=== PATIENT | male | born 1960 | race African-American/Black ===

== ENCOUNTER 2020-08-17 16:43 | Emergency (ER) | payer OTHER ==
[~2020-08-17] VITALS: Ht 185.4 cm; Wt 117.9 kg
[2020-08-17 16:46] VITALS: BP 187/96
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
--- NOTE | 2020-08-17 17:38 | Diagnostic Imaging Report ---
EXAM: CT Head Without Intravenous Contrast CLINICAL HISTORY: TRAUMA TECHNIQUE: Axial computed tomography images of the head/brain without intravenous contrast. CTDI is 53.4 mGy and DLP is 1179.1 mGy-cm. One or more of the following dose reduction techniques were used: automated exposure control, adjustment of the mA and/or kV according to patient size, use of iterative reconstruction technique. COMPARISON: No relevant prior studies available. FINDINGS: Brain: No acute intracranial hemorrhage, large hypodensity, or significant mass effect. Nonspecific areas of hypoattenuation in the periventricular white matter likely represent the sequela of chronic small vessel ischemic disease. Ventricles: No significant abnormality. Bones/joints: No acute abnormality. Soft tissues: No significant abnormality. Sinuses: No significant abnormality. Mastoid air cells: No significant abnormality. IMPRESSION: No acute intracranial hemorrhage or calvarial fracture.
--- NOTE | 2020-08-17 18:09 | Diagnostic Imaging Report ---
EXAM: XR Left Hip With Pelvis When Performed, 2 or 3 Views CLINICAL HISTORY: TRAUMA TECHNIQUE: Two or three views of the left hip with pelvis when performed. COMPARISON: No relevant prior studies available. FINDINGS: Bones/joints: No acute fracture or dislocation. Abnormal contour of bilateral femoral head neck junctions. Severe left hip osteoarthritis. Soft tissues: No significant abnormality. IMPRESSION: No acute fracture or dislocation. Abnormal contour of bilateral femoral head neck junctions can be seen in the setting of cam type femoral acetabular impingement.
--- NOTE | 2020-08-17 18:10 | Diagnostic Imaging Report ---
EXAM: XR Right Knee, 3 Views CLINICAL HISTORY: TRAUMA TECHNIQUE: Three views of the right knee. COMPARISON: No relevant prior studies available. FINDINGS: Bones/joints: No acute fracture or malalignment. Quadriceps enthesophyte. Soft tissues: No significant abnormality. IMPRESSION: No acute fracture or malalignment.
[2020-08-17 18:40] VITALS: BP 159/94
[2020-08-17] MEDS ORDERED: IBUPROFEN600 M1 ORAL (19:02)
[2020-08-17] MEDS ORDERED: LORazepam 0.5mg tab ORAL ONE (19:30)
[2020-08-17] MEDS ORDERED: Haloperidol Decanoate (Long Acting) 50mg Inj IM ONE (19:45)
[2020-08-17 20:20] LABS: APPEARANCE,URINE CLEAR; BILIRUBIN, URINE NEGATIVE (NEGATIVE); COLOR,URINE PALE YELLOW; GLUCOSE, URINE (UA) NEGATIVE (NEGATIVE); KETONES,URINE NEGATIVE (NEGATIVE); LEUKOCYTE ESTERASE ,URINE NEGATIVE (NEGATIVE); NITRITE,URINE NEGATIVE (NEGATIVE); PH,URINE 5 (4.5-8.0); PROTEIN,URINE NEGATIVE (NEGATIVE); UROBILINOGEN,URINE NORMAL MG/DL (0.0-1.0)
[2020-08-17 21:02] VITALS: BP 153/86
[2020-08-17 21:45] LABS: BASOPHILS % (AUTO) 1.9 % (0.0-2.0); EOSINOPHILS % (AUTO) 1.1 % (0.0-3.0); HEMATOCRIT 37.4 % (42.0-52.0); HEMOGLOBIN 13.7 G/DL (14.2-18.0); LYMPHOCYTES % (AUTO) 33.3 % (20.0-45.0); MEAN CORPUSCULAR VOLUME 85 FL (80-99); MONOCYTES % (AUTO) 10.7 % (1.0-10.0); NEUTROPHILS % (AUTO) 52.9 % (45.0-75.0); PLATELET COUNT 150 K/UL (150-450); RED BLOOD COUNT 4.39 M/UL (4.70-6.10); RED CELL DISTRIBUTION WIDTH 14.2 % (11.6-14.8); WHITE BLOOD COUNT 5.8 K/UL (4.8-10.8)
[2020-08-17 21:58] LABS: ANION GAP 7 mmol/L (5-15); BLOOD UREA NITROGEN 15 mg/dL (7-18); CALCIUM 8.8 MG/DL (8.5-10.1); CARBON DIOXIDE 27 MMOL/L (21-32); CHLORIDE 104 MMOL/L (98-107); POTASSIUM 4.3 MMOL/L (3.5-5.1); SODIUM 138 MMOL/L (136-145)
[2020-08-17 22:03] LABS: ALANINE AMINOTRANSFERASE 39 U/L (12-78); ALBUMIN 3.5 G/DL (3.4-5.0); ALBUMIN/GLOBULIN RATIO 0.9 (1.0-2.7); ALKALINE PHOSPHATASE 77 U/L (46-116); ASPARTATE AMINO TRANSFERASE 36 U/L (15-37); BILIRUBIN,TOTAL 0.5 MG/DL (0.2-1.0)
[2020-08-17 22:54] VITALS: BP 153/86
== END 2020-08-17 22:55 | disposition short-term general hospital (02) ==
LOC: EDBD 16:43 → EMR 17:00
DX: S09.90XA Unspecified injury of head, initial encounter (principal); S80.01XA Contusion of right knee, initial encounter; S70.02XA Contusion of left hip, initial encounter; R41.82 Altered mental status, unspecified; W01.198A Fall on same level from slipping, tripping and stumbling with subsequent striking against other object, initial encounter; Y93.9 Activity, unspecified; Y92.129 Unspecified place in nursing home as the place of occurrence of the external cause
CPT/HCPCS: 36415; 70450; 73502; 73562; 80053; 81003; 83690; 85025; 96372; J1631; U0002; Z7502; 99285

== ENCOUNTER 2020-10-24 18:39 | Inpatient (IN) | payer OTHER ==
[~2020-10-24] VITALS: Ht 185.4 cm; Wt 126.6 kg
[~2020-10-24 18:39] MED LIST: IBUPROFEN600 M1 ORAL
[2020-10-24] MEDS ORDERED: levETIRAcetam 500mg/NS100ml 100 ML IV ONE (18:45)
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
[2020-10-24 19:07] LABS: APPEARANCE,URINE CLEAR; BASOPHILS % (AUTO) 0.8 % (0.0-2.0); BILIRUBIN, URINE NEGATIVE (NEGATIVE); COLOR,URINE PALE YELLOW; EOSINOPHILS % (AUTO) 0.4 % (0.0-3.0); GLUCOSE, URINE (UA) NEGATIVE (NEGATIVE); HEMATOCRIT 42.7 % (42.0-52.0); HEMOGLOBIN 13.8 G/DL (14.2-18.0); KETONES,URINE NEGATIVE (NEGATIVE); LEUKOCYTE ESTERASE ,URINE NEGATIVE (NEGATIVE); LYMPHOCYTES % (AUTO) 12.6 % (20.0-45.0); MEAN CORPUSCULAR VOLUME 93 FL (80-99); NEUTROPHILS % (AUTO) 78.2 % (45.0-75.0); NITRITE,URINE NEGATIVE (NEGATIVE); PH,URINE 8 (4.5-8.0); PLATELET COUNT 148 K/UL (150-450); PROTEIN,URINE NEGATIVE (NEGATIVE); RED BLOOD COUNT 4.61 M/UL (4.70-6.10); RED CELL DISTRIBUTION WIDTH 14.4 % (11.6-14.8); UROBILINOGEN,URINE NORMAL MG/DL (0.0-1.0)
--- NOTE | 2020-10-24 19:12 | NUR ---
Patient presents to the ER from care home reporting that he had 4 seizures today. He does have hx of seizures & epilepsy. pt on keppra 500 and gabapentin. pt states + LOC, unsure if he hit his head. care home unable to state time between seizures. pt A&Ox4 on arrival. pt states hx stroke with R sided weakness. pt placed on continuous cardiac/O2 monitor. IV placed 20g L hand. labs & urine sent.
[2020-10-24 19:19] LABS: ANION GAP 9 mmol/L (5-15); BLOOD UREA NITROGEN 14 mg/dL (7-18); CALCIUM 9.3 MG/DL (8.5-10.1); CARBON DIOXIDE 27 MMOL/L (21-32); CHLORIDE 100 MMOL/L (98-107); SODIUM 135 MMOL/L (136-145)
[2020-10-24 19:21] LABS: ALANINE AMINOTRANSFERASE 32 U/L (12-78); ALBUMIN 3.7 G/DL (3.4-5.0); ALBUMIN/GLOBULIN RATIO 0.7 (1.0-2.7); ALKALINE PHOSPHATASE 88 U/L (46-116); ASPARTATE AMINO TRANSFERASE 28 U/L (15-37); BILIRUBIN,TOTAL 0.2 MG/DL (0.2-1.0); CREATINE KINASE 254 U/L (26-308)
[2020-10-24] MEDS ORDERED: LORazepam Inj 2mg/ml 1ml IV ONE (19:30)
[2020-10-24] MEDS ORDERED: LORazepam Inj 2mg/ml 1ml ONE (19:31)
--- NOTE | 2020-10-24 19:34 | Diagnostic Imaging Report ---
EXAM: CT Head Without Intravenous Contrast CLINICAL HISTORY: SZ TECHNIQUE: Axial computed tomography images of the head/brain without intravenous contrast. CTDI is 53.4 mGy and DLP is 1075.9 mGy-cm. One or more of the following dose reduction techniques were used: automated exposure control, adjustment of the mA and/or kV according to patient size, use of iterative reconstruction technique. COMPARISON: Total 18 2020 FINDINGS: Brain: Interval mildly increased subtle hypodensity in the right basal ganglia region could reflect changes of chronic microvascular ischemia, although early ischemia could potentially have this appearance. Otherwise no acute intracranial abnormality. Remaining parenchymal morphology and attenuation unremarkable. No hemorrhage. Ventricles: Unremarkable. No ventriculomegaly. Bones/joints: Unremarkable. No acute fracture. Soft tissues: Unremarkable. Sinuses: Unremarkable as visualized. No acute sinusitis. Mastoid air cells: Unremarkable as visualized. No mastoid effusion. Other findings: Correlate with presentation and consider additional imaging if felt to alter clinical management. IMPRESSION: 1. Interval mildly increased subtle hypodensity in the right basal ganglia region could reflect changes of chronic microvascular ischemia, although early ischemia could potentially have this appearance. 2. Correlate with presentation and consider additional imaging if felt to alter clinical management. 3. Otherwise no acute intracranial abnormality. 4. Otherwise unremarkable study. <MYCVCSECTION> Communications: 10/24/20 19:36 Call Doctor Regarding Stroke, called Dr. Haney on 10/24 19:36 (-08:00)
[2020-10-24 20:05] VITALS: BP 148/101
[2020-10-24 20:15] VITALS: BP 124/77
[2020-10-24 20:17] VITALS: BP 173/96
--- NOTE | 2020-10-24 20:17 | NUR ---
ED Nurse Note: Spoke to ENRICO Cui of [facility]
[2020-10-24 21:40] VITALS: BP 163/91
[2020-10-24] MEDS ORDERED: NORVASC10 MG ORAL (23:22)
[2020-10-24] MEDS ORDERED: AMLO (23:22)
[2020-10-24] MEDS ORDERED: DOCUSATE SODIU100 M2 ORAL (23:26)
--- NOTE | 2020-10-24 23:30 | NUR ---
TRANSFER TO FLOOR: Patient transferred to [facility] as ordered, per MD. Report given to Natalie. Belongings sent with patient, belongings form signed, filled, and sent with chart
[2020-10-24] MEDS ORDERED: APRESOLINE100 MG ORAL (23:31)
[2020-10-24] MEDS ORDERED: FOLIC ACID1 MG ORAL (23:31)
[2020-10-24] MEDS ORDERED: GABAPENTIN300 MG/61 ORAL (23:31)
[2020-10-24] MEDS ORDERED: METOPROLOL TART50 M1 ORAL (23:31)
[2020-10-24] MEDS ORDERED: MULTI-VITAMIN1 EACH PO (23:46)
[2020-10-24] MEDS ORDERED: HYDROCODON-ACE1 EA13 ORAL (23:46)
[2020-10-24] MEDS ORDERED: RISPERDAL2 MG ORAL (23:46)
[2020-10-24] MEDS ORDERED: SENNA-S 8.6-501 EACH PO (23:46)
[2020-10-24] MEDS ORDERED: LEVETIRACE500 MG/51 PO (23:46)
[2020-10-24] MEDS ORDERED: LORAZEPAM2 MG/1 M1 PO (23:46)
[2020-10-24] MEDS ORDERED: VITAMIN D325 MC1 PO (23:49)
[2020-10-24] MEDS ORDERED: VITAMIN C500 M1 ORAL (23:49)
[2020-10-24] MEDS ORDERED: TRAZODONE HCL150 MG ORAL (23:49)
[2020-10-24] MEDS ORDERED: ZOFRAN4 M1 ORAL (23:49)
[2020-10-25] VITALS (7 sets, daily range): BP systolic 120–172; BP diastolic 56–97
--- NOTE | 2020-10-25 00:25 | NUR ---
NURSE NOTES: Received report from REVA Wylie. Pt is A/O x2-3 but drowsy. No SOB or acute distress noted. No pain noted. Pt does complain of a headache will ask for medication to treat. Pt is continent of bladder but not bowel. Pt uses a urinal which is placed at bedside. Pt is on seizure precaution and side rails are padded for safety. Pt has a LH 20G which is patent and saline locked. No seizure activity seen at this time. Vs signs are stable but elevated and will contact regarding medications. Bed in lowest position and locked with side rails x3. Will get admitting orders from Dr. Munoz.
[2020-10-25] MEDS ORDERED: HydrALAZINE 50mg tab ORAL ONE (01:30)
[2020-10-25] MEDS: LORazepam Inj 2mg/ml 1ml IVP SCH ×3 (06:11→17:27)
--- NOTE | 2020-10-25 06:26 | NUR ---
NURSE HAND-OFF REPORT: Important Events on Shift:New Admit from S/P Seizure Patient Status: Stable no seizure activity Diet: Regular Pending Orders: Pending Results/Labs: Pending MD notification: Latest Vital Signs: Temperature 99.3 , Pulse 86 , B/P 137 /98 , Respiratory Rate 18 , O2 SAT 97 , Room Air, O2 Flow Rate . Vital Sign Comment: EKG Rhythm: Sinus Rhythm Rhythm change?: N MD Notified?: - MD Response: Latest Chris Fall Score: 60 Fall Risk: High Risk Safety Measures: Call light Within Reach, Bed Alarm Zone 2, Side Rails Side Rails x3, Bed position Low and Locked. Fall Precautions: Yellow Socks Patient Fall Education Report given to Albin.
--- NOTE | 2020-10-25 07:52 | NUR ---
Patient seen in bed in low fowlers position, AAox3 with no acute signs of distress. Patient complaining of being unable to sleep due to routine care at night, minimized lighting and provided quiet environment for patient. Patient had no complaints of pain 0/10. Patient has L hand 22G IV that is saline locked, clean, patent and intact. The patient is on room air with oxygen saturation within normal limits. The patients bed is in lowest position, locked, side rails x2, call light within reach and bed alarm in zone 1.
[2020-10-25] MEDS: Vitamin D 1000 units Tab ORAL SCH (08:27)
[2020-10-25] MEDS: Docusate 100mg cap ORAL SCH (08:27)
[2020-10-25] MEDS: Ascorbic Acid 500mg tab ORAL SCH (08:28)
--- NOTE | 2020-10-25 08:44 | Consultation ---
History of Present Illness General Chief Complaint: Seizure Present Illness HPI 60 year old man with schizophrenia, epilepsy, HTN, history of CVA with left sided residual hemiparesis, who was sent to ED from SNF for breakthrough seizures. Patient is a limited historian, can provide details of the presenta tion. Information obtained from EMR. Apparently he had 4 episodes of seizure yesterday - in ED had another GTC seizure, given Ativan IVP x 1. Patient currently at baseline mentation, denies any complaints. Allergies: Coded Allergies: No Known Allergies (Unverified , 08/17/20) Medication History Scheduled Amlodipine Besylate (Norvasc), 10 MG ORAL DAILY, (Reported) Ascorbic Acid* (Vitamin C*), 500 MG ORAL DAILY, (Reported) Cholecalciferol (Vitamin D3) (Vitamin D3*), 5,000 UNIT PO DAILY, (Reported) Docusate Sodium (Docusate Sodium), 100 MG ORAL DAILY, (Reported) Folic Acid* (Folic Acid*), 1 MG ORAL DAILY, (Reported) Gabapentin (Gabapentin), 300 MG ORAL THREE TIMES A DAY, (Reported) Hydralazine HCl (Hydralazine HCl), 100 MG ORAL BEDTIME, (Reported) Levetiracetam (Levetiracetam), 500 MG PO BEDTIME, (Reported) Lorazepam* (Lorazepam*), 1 MG PO Q6HR, (Reported) Metoprolol Tartrate* (Metoprolol Tartrate*), 50 MG ORAL DAILY, (Reported) Sennosides/Docusate Sodium (Senna-S 8.6-50 mg Tablet), 2 TAB PO BEDTIME, (Reported) Trazodone* (Trazodone*), 50 MG ORAL BEDTIME, (Reported) Scheduled PRN Hydrocodone Bit/Acetaminophen 10-325* (Hydrocodon-Acetaminophn 10-325*), 1 TAB ORAL Q4H PRN for PRN, (Reported) Ibuprofen* (Motrin*), 600 MG ORAL Q6H PRN for For Pain Ondansetron (Zofran), 4 MG ORAL Q6H PRN for Nausea & Vomiting, (Reported) Risperidone* (Risperdal*), 2 MG ORAL DAILY PRN for bedtime, (Reported) Miscellaneous Medications Multivitamin (Multi-Vitamin Daily), 1 TAB PO, (Reported) Patient History Healthcare decision maker N Resuscitation status Advanced Directive on File Review of Systems All Other Systems: negative except mentioned in HPI Physical Exam General Appearance: no apparent distress, alert Lines, tubes and drains: peripheral HEENT: normocephalic, atraumatic Neck: non-tender, normal alignment Respiratory/Chest: chest wall non-tender, lungs clear Cardiovascular/Chest: normal peripheral pulses, normal rate Abdomen: normal bowel sounds, non tender, soft Extremities: normal range of motion, non-tender 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, oriented x 3 Last 24 Hour Vital Signs Date Time Temp Pulse Resp B/P (MAP) Pulse Ox O2 Delivery O2 Flow Rate FiO2 10/25/20 08:29 89 142/92 10/25/20 08:28 89 142/92 10/25/20 06:11 86 18 137/98 97 10/25/20 04:00 99.3 85 17 140/97 (111) 97 10/25/20 01:30 173/87 10/25/20 00:50 Room Air 10/25/20 00:25 100.0 72 20 172/87 (115) 98 10/25/20 00:25 72 10/25/20 00:00 98.8 78 23 162/88 96 10/24/20 21:40 98.2 73 24 163/91 100 Room Air 10/24/20 20:17 173/96 10/24/20 20:15 124/77 10/24/20 20:05 88 24 Room Air 10/24/20 20:05 148/101 10/24/20 19:35 88 20 198/88 100 10/24/20 18:40 98.2 90 18 189/100 (129) 97 Room Air l Intake and Output 10/24/20 10/25/20 19:00 07:00 Intake Total 680 ml Output Total 400 ml Balance 280 ml Intake Oral 680 ml Output Urine Total 400 ml Laboratory Tests Test 10/24/20 18:58 White Blood Count 7.0 K/UL (4.8-10.8) Red Blood Count 4.61 M/UL (4.70-6.10) L Hemoglobin 13.8 G/DL (14.2-18.0) L Hematocrit 42.7 % (42.0-52.0) Mean Corpuscular Volume 93 FL (80-99) Mean Corpuscular Hemoglobin 30.0 PG (27.0-31.0) Mean Corpuscular Hemoglobin Concent 32.4 G/DL (32.0-36.0) Red Cell Distribution Width 14.4 % (11.6-14.8) Platelet Count 148 K/UL (150-450) L Mean Platelet Volume 6.4 FL (6.5-10.1) L Neutrophils (%) (Auto) 78.2 % (45.0-75.0) H Lymphocytes (%) (Auto) 12.6 % (20.0-45.0) L Monocytes (%) (Auto) 8.0 % (1.0-10.0) Eosinophils (%) (Auto) 0.4 % (0.0-3.0) Basophils (%) (Auto) 0.8 % (0.0-2.0) Urine Color Pale yellow Urine Appearance Clear Urine pH 8 (4.5-8.0) Urine Specific [place] 1.010 (1.005-1.035) Urine Protein Negative (NEGATIVE) Urine Glucose (UA) Negative (NEGATIVE) Urine Ketones Negative (NEGATIVE) Urine Blood Negative (NEGATIVE) Urine Nitrite Negative (NEGATIVE) Urine Bilirubin Negative (NEGATIVE) Urine Urobilinogen Normal MG/DL (0.0-1.0) Urine Leukocyte Esterase Negative (NEGATIVE) Sodium Level 135 MMOL/L (136-145) L Potassium Level 4.0 MMOL/L (3.5-5.1) Chloride Level 100 MMOL/L (98-107) Carbon Dioxide Level 27 MMOL/L (21-32) Anion Gap 9 mmol/L (5-15) Blood Urea Nitrogen 14 mg/dL (7-18) Creatinine 1.0 MG/DL (0.55-1.30) Estimat Glomerular Filtration Rate > 60 mL/min (>60) Glucose Level 102 MG/DL (74-106) Calcium Level 9.3 MG/DL (8.5-10.1) Total Bilirubin 0.2 MG/DL (0.2-1.0) Aspartate Amino Transf (AST/SGOT) 28 U/L (15-37) Alanine Aminotransferase (ALT/SGPT) 32 U/L (12-78) Alkaline Phosphatase 88 U/L (46-116) Total Creatine Kinase 254 U/L (26-308) Troponin I 0.069 ng/mL (0.000-0.056) Total Protein 8.9 G/DL (6.4-8.2) H Albumin 3.7 G/DL (3.4-5.0) Globulin 5.2 g/dL Albumin/Globulin Ratio 0.7 (1.0-2.7) L Urine Opiates Screen Negative (NEGATIVE) Acetaminophen Level < 2 MCG/ML (10-30) L Urine Barbiturates Screen Negative (NEGATIVE) Phencyclidine (PCP) Screen Negative (NEGATIVE) Urine Amphetamines Screen Negative (NEGATIVE) Urine Benzodiazepines Screen Negative (NEGATIVE) Urine Cocaine Screen Negative (NEGATIVE) Urine Marijuana (THC) Screen Negative (NEGATIVE) Serum Alcohol < 3 mg/dL Height (Feet): 6 Height (Inches): 1.00 Weight (Pounds): 279 Medications Current Medications Medications (Trade) Dose Ordered Sig/Nicole Route PRN Reason Start Time Stop Time Status Last Admin Dose Admin Acetaminophen (Tylenol) 650 mg Q6H PRN ORAL FEVER 10/25/20 00:45 11/24/20 00:44 Acetaminophen (Tylenol) 650 mg Q6H PRN ORAL For Headache 10/25/20 00:45 11/24/20 00:44 Acetaminophen/ Hydrocodone Bitart ([place] 10/325) 1 tab Q4H PRN ORAL PAIN 4-10 10/25/20 06:30 11/01/20 06:29 Amlodipine Besylate (Norvasc) 10 mg DAILY ORAL 10/25/20 09:00 11/24/20 08:59 10/25/20 08:28 Ascorbic Acid (Vitamin C) 500 mg DAILY ORAL 10/25/20 09:00 11/24/20 08:59 10/25/20 08:28 Docusate Sodium (Colace) 100 mg DAILY ORAL 10/25/20 09:00 11/24/20 08:59 10/25/20 08:27 Folic Acid (Folate) 1 mg DAILY ORAL 10/25/20 09:00 11/24/20 08:59 10/25/20 08:28 Gabapentin (Neurontin) 300 mg THREE TIMES A DAY ORAL 10/25/20 09:00 11/24/20 08:59 Hydralazine HCl (Apresoline) 100 mg QHS ORAL 10/25/20 21:00 01/23/21 20:59 Ibuprofen (Motrin) 600 mg Q6H PRN ORAL Mild Pain (Pain Scale 1-3) 10/25/20 01:30 11/24/20 01:29 Levetiracetam (Keppra) 500 mg QHS NG 10/25/20 21:00 12/09/20 20:59 Lorazepam (Ativan 2mg/ml 1ml) 1 mg Q6HR IVP 10/25/20 06:00 11/01/20 05:59 10/25/20 06:11 Metoprolol Tartrate (Lopressor) 25 mg Q12HR ORAL 10/25/20 09:00 01/23/21 08:59 10/25/20 08:29 Multivitamins (Multivitamins) 1 tab DAILY ORAL 10/25/20 09:00 11/24/20 08:59 10/25/20 08:28 Ondansetron HCl (Zofran) 4 mg Q6H PRN ORAL Nausea & Vomiting 10/25/20 01:30 11/24/20 01:29 Risperidone (RisperDAL) 2 mg HSPRN PRN ORAL bedtime agitation 10/25/20 01:30 12/09/20 01:29 Sennosides (Senokot) 17.2 mg QHS ORAL 10/25/20 21:00 11/24/20 20:59 Trazodone HCl (Desyrel) 50 mg BEDTIME ORAL 10/25/20 21:00 11/24/20 20:59 Vitamin D (Vitamin D) 5,000 unit DAILY ORAL 10/25/20 09:00 11/24/20 08:59 10/25/20 08:27 Assessment/Plan Diagnosis [place] [facility]: #Breakthrough seizure #Epilepsy #NSTEMI - likely type 2, demand ischemia in the setting of multiple seizures #history of CVA with left sided residual weakness #Hypertensive urgency #Schizophrenia -admit to telemetry -Cardiac monitoring -Serial troponin -cont ASA, Statin, metoprolol, amlodipine and hydralazine -continue Keppra - possible increase to bid -Neurology eval -Cardiology Nicky Brown M.D. Oct 25, 2020 08:44
--- NOTE | 2020-10-25 09:50 | Consultation ---
Consult Note Consult Note DATE OF CONSULTATION: 10/25/2020 CONSULTING PHYSICIAN: Sebas Newton MD. ATTENDING PHYSICIAN: Dr. Munoz REASON FOR CONSULTATION: Uncontrolled seizure, aspiration risk, smoking HISTORY OF PRESENT ILLNESS: This is a 60-year-old male with past medical history of hypertension and seizure disorder, who was sent to ED from SNF for seizures. Patient is taking both gabapentin and Keppra. Patient was reported to have his second dose of Covid vaccine last week. Patient is without COVID-19 symptoms at this time. Patient's troponin was elevated. The head CT was negative for acute intracranial abnormality. Patient was given Ativan, and aspirin in ER and was admitted to the hospital for further management. Patient reports 10-year history of smoking, 4 cigarettes a day. Patient denies history of COPD or asthma. PAST MEDICAL HISTORY: Hypertension, seizures MEDICATIONS: Norvasc, vitamin C, vitamin D, docusate, folic acid, gabapentin, hydralazine, hydrocodone, ibuprofen, levetiracetam, metoprolol, multivitamin, Zofran, risperidone, sennosides, trazodone ALLERGIES: No known allergies FAMILY HISTORY: Noncontributory PERSONAL/SOCIAL HISTORY: Reports 10-year history of smoking, 4 cigarettes a day. Patient is resident of [facility] REVIEW OF SYSTEMS: Negative except mentioned in HPI PHYSICAL EXAMINATION: VITAL SIGNS: Blood pressure 142/92, heart rate 89, respiratory rate 18, weight 127 kg, height 185 cm. General: Patient laying in bed comfortably, NAD HEENT: Head exam reveals that the head is normocephalic, atraumatic without deformity or unusual swelling. Pupils are PERRLA. CHEST AND LUNGS: Reveals clear, normal, symmetrical breath sounds with no adventitious sounds. CARDIOVASCULAR: Reveals normal S1, S2 without murmurs, rubs, or clicks. 1+ pitting edema in bilateral lower extremities ABDOMEN: Soft with no tenderness or organomegaly. RECTAL: Deferred. MUSCULOSKELETAL: There is no tenderness to palpation. Range of motion is normal. NEUROLOGICAL: Alert and oriented x3 , nonfocal LABORATORY DATA: Laboratory testing shows hemoglobin 13.8, hematocrit 42.7, platelet count 148. Chemistries show sodium 135, troponin 0.069 Urinalysis unremarkable Assessment/Plan 1. Seizure -On Keppra, risperidone, Ativan 2. Risk of aspiration/pneumonia, due to #1 -Patient is afebrile -Monitor for fever, and seizure - f/u CXR if indicated 3. Smoker -Patient educated on smoking cessation 4. Elevated troponin -Serial troponin - seen by cardio 5. Leg edema - will order V/D US of legs -> SCD if negative The care for this patient was discussed with my supervising physician. Time spent for this case was approximately 31 minutes. Kevin Anderson Oct 25, 2020 09:49
[2020-10-25] MEDS: Gabapentin 300 MG/6 ML Soln ORAL SCH ×3 (09:53→17:26)
--- NOTE | 2020-10-25 10:38 | Cardiac Electrophysiology PN ---
Subjective Subjective [id number] Objective Last 24 Hour Vital Signs Date Time Temp Pulse Resp B/P (MAP) Pulse Ox O2 Delivery O2 Flow Rate FiO2 10/25/20 08:29 89 142/92 10/25/20 08:28 89 142/92 10/25/20 06:11 86 18 137/98 97 10/25/20 04:00 99.3 85 17 140/97 (111) 97 10/25/20 01:30 173/87 10/25/20 00:50 Room Air 10/25/20 00:25 100.0 72 20 172/87 (115) 98 10/25/20 00:25 72 10/25/20 00:00 98.8 78 23 162/88 96 10/24/20 21:40 98.2 73 24 163/91 100 Room Air 10/24/20 20:17 173/96 10/24/20 20:15 124/77 10/24/20 20:05 88 24 Room Air 10/24/20 20:05 148/101 10/24/20 19:35 88 20 198/88 100 10/24/20 18:40 98.2 90 18 189/100 (129) 97 Room Air Intake and Output 10/24/20 10/25/20 19:00 07:00 Intake Total 680 ml Output Total 400 ml Balance 280 ml Intake Oral 680 ml Output Urine Total 400 ml Laboratory Tests Test 10/24/20 18:58 White Blood Count 7.0 K/UL (4.8-10.8) Red Blood Count 4.61 M/UL (4.70-6.10) L Hemoglobin 13.8 G/DL (14.2-18.0) L Hematocrit 42.7 % (42.0-52.0) Mean Corpuscular Volume 93 FL (80-99) Mean Corpuscular Hemoglobin 30.0 PG (27.0-31.0) Mean Corpuscular Hemoglobin Concent 32.4 G/DL (32.0-36.0) Red Cell Distribution Width 14.4 % (11.6-14.8) Platelet Count 148 K/UL (150-450) L Mean Platelet Volume 6.4 FL (6.5-10.1) L Neutrophils (%) (Auto) 78.2 % (45.0-75.0) H Lymphocytes (%) (Auto) 12.6 % (20.0-45.0) L Monocytes (%) (Auto) 8.0 % (1.0-10.0) Eosinophils (%) (Auto) 0.4 % (0.0-3.0) Basophils (%) (Auto) 0.8 % (0.0-2.0) Urine Color Pale yellow Urine Appearance Clear Urine pH 8 (4.5-8.0) Urine Specific [place] 1.010 (1.005-1.035) Urine Protein Negative (NEGATIVE) Urine Glucose (UA) Negative (NEGATIVE) Urine Ketones Negative (NEGATIVE) Urine Blood Negative (NEGATIVE) Urine Nitrite Negative (NEGATIVE) Urine Bilirubin Negative (NEGATIVE) Urine Urobilinogen Normal MG/DL (0.0-1.0) Urine Leukocyte Esterase Negative (NEGATIVE) Sodium Level 135 MMOL/L (136-145) L Potassium Level 4.0 MMOL/L (3.5-5.1) Chloride Level 100 MMOL/L (98-107) Carbon Dioxide Level 27 MMOL/L (21-32) Anion Gap 9 mmol/L (5-15) Blood Urea Nitrogen 14 mg/dL (7-18) Creatinine 1.0 MG/DL (0.55-1.30) Estimat Glomerular Filtration Rate > 60 mL/min (>60) Glucose Level 102 MG/DL (74-106) Calcium Level 9.3 MG/DL (8.5-10.1) Total Bilirubin 0.2 MG/DL (0.2-1.0) Aspartate Amino Transf (AST/SGOT) 28 U/L (15-37) Alanine Aminotransferase (ALT/SGPT) 32 U/L (12-78) Alkaline Phosphatase 88 U/L (46-116) Total Creatine Kinase 254 U/L (26-308) Troponin I 0.069 ng/mL (0.000-0.056) Total Protein 8.9 G/DL (6.4-8.2) H Albumin 3.7 G/DL (3.4-5.0) Globulin 5.2 g/dL Albumin/Globulin Ratio 0.7 (1.0-2.7) L Urine Opiates Screen Negative (NEGATIVE) Acetaminophen Level < 2 MCG/ML (10-30) L Urine Barbiturates Screen Negative (NEGATIVE) Phencyclidine (PCP) Screen Negative (NEGATIVE) Urine Amphetamines Screen Negative (NEGATIVE) Urine Benzodiazepines Screen Negative (NEGATIVE) Urine Cocaine Screen Negative (NEGATIVE) Urine Marijuana (THC) Screen Negative (NEGATIVE) Serum Alcohol < 3 mg/dL Hakeem Henriquez MD Oct 25, 2020 10:38
[2020-10-25] MEDS ORDERED: cloNIDine 0.2mg Tab ORAL PRN (11:00)
--- NOTE | 2020-10-25 11:44 | Consultation ---
DATE OF CONSULTATION: 10/25/2020 CARDIOLOGY CONSULTATION CONSULTING PHYSICIAN: Hakeem Henriquez MD. REFERRING PHYSICIAN: Nicky Munoz MD. REASON FOR CONSULTATION: Management of hypertension and elevated troponin. HISTORY OF PRESENT ILLNESS: The patient is a 60-year-old gentleman with history of hypertension, seizure disorder, was [facility] from [facility]. The patient is taking gabapentin and Keppra. The patient had his second COVID last week without any COVID symptoms. Troponin was also elevated. CT of the brain showed no acute intracranial pathology, received Ativan and aspirin in the emergency room. At the time of my evaluation, the patient denies any chest pain, palpitation, or shortness of breath. REVIEW OF SYSTEMS: Negative other than what was mentioned in the history of present illness. PAST MEDICAL HISTORY: As mentioned above. FAMILY HISTORY: Noncontributory. SOCIAL HISTORY: He lives in alf. Does not smoke or drink alcohol. MEDICATIONS: Per reconciliation include metoprolol, hydralazine, Norvasc, other noncardiac medications. ALLERGIES: He has no known drug allergies. PHYSICAL EXAMINATION: VITAL SIGNS: Blood pressure of 142/92, pulse 89, respirations 18, temperature 99.3. HEAD AND NECK: Showed no JVD. LUNGS: Clear. CARDIOVASCULAR: Regular S1 and S2 with no gallop or murmur. ABDOMEN: Soft. EXTREMITIES: No pitting edema. LABORATORY DATA: White count 7, hemoglobin 13.8, hematocrit 42.7, platelet 148. Sodium 135, potassium 4.0, BUN of 14, creatinine 1.1, glucose of 102. Troponin is 0.069. His EKG shows sinus tachycardia with no acute ST-T wave abnormalities. Urine toxicology screen is negative. ASSESSMENT AND PLAN: 1. Elevated troponin. The patient currently does not have any chest pain. EKG does not show acute ischemic changes. We will repeat EKG and get an echocardiogram for further evaluation. In the meantime, put the patient on aspirin, beta-filiberto, and statin. 2. Possible congestive heart failure. We will get BNP and echocardiogram for further evaluation. Lower extremity duplex is pending. 3. Accelerated hypertension. Change hydralazine from 100 mg at night to 50 mg b.i.d. and continue metoprolol 25 mg b.i.d. The patient is also on Norvasc 10 mg daily and add p.r.n. clonidine to his medical regimen. 4. Uncontrolled seizures. Thank you very much for allowing me to participate in the care of this patient. Please do not hesitate to contact me for any questions regarding my evaluation. Sincerely, aHkeem Henriquez M.D. DR: Mohit JOB#: [id number] CC:
--- NOTE | 2020-10-25 11:52 | Consultation ---
History of Present Illness General Date patient seen: Oct 25, 2020 Reason for Hospitalization: Seizure Present Illness HPI Patient from assisted living apparently had 4 seizures today. He is taking both gabapentin and Keppra. He takes Keppra 500 mg once at night. The procedure was 2 PM. Lasted 2 minutes. The second 1 was at 230. It is unknown whether he regained his baseline level of consciousness at that time. History of when this started for seizures occurred is unknown. The patient remembers falling during one of the episodes. He is uncertain if he hit his head. He did not bite his tongue. There was no incontinence. He is not sure if he fully woke between the episodes of the seizures. Patient was seen last August 17. At that time he did not have a seizure but had been tackled [address] of the head was done at that time. The patient had his second Covid vaccine last week. Denies any Covid symptoms at this time. The patient complains about some chronic left hip pain and states that his hip "goes out". He also is complaining about some swelling in his lower extremities that is intermittent. He has been on a water pill in the past but is not taking one at this time. No fevers, chills, sore throat, chest pain, palpitations, nausea, vomiting, diarrhea, dysuria, abdominal pain, shortness of breath, rashes, depression, anxiety, visual changes. surgery called to evaluate for possible lower extremity cellulitis Allergies: Coded Allergies: No Known Allergies (Unverified , 08/17/20) COVID-19 Screening Contact w/high risk pt: No Experienced COVID-19 symptoms?: No Medication History Scheduled Amlodipine Besylate (Norvasc), 10 MG ORAL DAILY, (Reported) Ascorbic Acid* (Vitamin C*), 500 MG ORAL DAILY, (Reported) Cholecalciferol (Vitamin D3) (Vitamin D3*), 5,000 UNIT PO DAILY, (Reported) Docusate Sodium (Docusate Sodium), 100 MG ORAL DAILY, (Reported) Folic Acid* (Folic Acid*), 1 MG ORAL DAILY, (Reported) Gabapentin (Gabapentin), 300 MG ORAL THREE TIMES A DAY, (Reported) Hydralazine HCl (Hydralazine HCl), 100 MG ORAL BEDTIME, (Reported) Levetiracetam (Levetiracetam), 500 MG PO BEDTIME, (Reported) Metoprolol Tartrate* (Metoprolol Tartrate*), 50 MG ORAL DAILY, (Reported) Sennosides/Docusate Sodium (Senna-S 8.6-50 mg Tablet), 2 TAB PO BEDTIME, (Reported) Thiamine Hcl* (Vitamin B-1*), 100 MG ORAL DAILY, (Reported) Trazodone* (Trazodone*), 50 MG ORAL BEDTIME, (Reported) Scheduled PRN Hydrocodone Bit/Acetaminophen (Hydrocodon-Acetaminophen 5-300), 1 EACH PO Q4HR PRN for Mild Pain (Pain Scale 1-3), (Reported) Hydrocodone Bit/Acetaminophen 10-325* (Hydrocodon-Acetaminophn 10-325*), 1 TAB ORAL Q4H PRN for PRN, (Reported) Ibuprofen* (Motrin*), 600 MG ORAL Q6H PRN for For Pain Lorazepam* (Ativan*), 1 MG ORAL Q6HR PRN for For Anxiety, (Reported) Ondansetron (Zofran), 4 MG ORAL Q6H PRN for Nausea & Vomiting, (Reported) Risperidone* (Risperdal*), 2 MG ORAL DAILY PRN for bedtime, (Reported) Miscellaneous Medications Multivitamin (Multi-Vitamin Daily), 1 TAB PO, (Reported) Discontinued Medications Lorazepam* (Lorazepam*), 1 MG PO Q6HR, (Reported) Discontinued Reason: Prescription changed Patient History History Provided By: Patient, Medical Record, PMD Healthcare decision maker N Resuscitation status Advanced Directive on File Past Medical/Surgical History Past Medical/Surgical History: (1) Altered mental status (2) Head injury (3) Contusion of left hip (4) Contusion of right knee (5) Status post CVA (6) Seizure disorder (7) Elevated troponin Review of Systems Review of Symptoms General ROS: no weight loss or fever Psychological ROS: no depression or mood changes, no memory loss Ophthalmic ROS: no visual changes or eye irritation ENT ROS: no nasal congestion, hearing loss, dizziness Allergy and Immunology ROS: no allergic symptoms or urticaria Hematological and Lymphatic ROS: no swollen glands, unusual bleeding or bruising Endocrine ROS: no polyuria, polydipsia, weight changes, temperature intolerance Respiratory ROS: no cough, shortness of breath, or wheezing Cardiovascular ROS: no chest pain or dyspnea on exertion Gastrointestinal ROS: denies abdominal pain, bright red blood in stool. Musculoskeletal ROS: no myalgias or arthralgias Neurological ROS: no TIA or stroke symptoms Dermatological ROS: no new or changing skin lesions, rashes or pruritis Physical Exam Physical Exam [id number] EP Interpretation: reviewed, normal General Appearance: no apparent distress, alert, other - Flat affect Head: normocephalic, atraumatic Eyes: bilateral eye normal inspection, bilateral eye PERRL, bilateral eye EOMI ENT: moist mucus membranes Neck: normal inspection, full range of motion, supple, no bony tend Respiratory: chest non-tender, lungs clear, normal breath sounds Cardiovascular #1: regular rate, rhythm, edema - 1+ pitting plus pedal edema Cardiovascular #2: 2+ radial (R) Gastrointestinal: non tender, soft, overweight Genitourinary: no CVA tenderness Musculoskeletal: back normal, normal range of motion, no calf tenderness Neurologic: vice president research III-XII nml as tested, DTRs symmetric, oriented x3, motor weakness - minimal L upper arm, speech normal, other - finger to nose slightly off on Left side Psychiatric: mood/affect normal - Slightly flat affect Skin: no rash, warm/dry Last 24 Hour Vital Signs Date Time Temp Pulse Resp B/P (MAP) Pulse Ox O2 Delivery O2 Flow Rate FiO2 10/25/20 08:29 89 142/92 10/25/20 08:28 89 142/92 10/25/20 08:00 89 10/25/20 08:00 99.2 72 20 172/87 (115) 98 10/25/20 06:11 86 18 137/98 97 10/25/20 04:00 99.3 85 17 140/97 (111) 97 10/25/20 01:30 173/87 10/25/20 00:50 Room Air 10/25/20 00:25 100.0 72 20 172/87 (115) 98 10/25/20 00:25 72 10/25/20 00:00 98.8 78 23 162/88 96 10/24/20 21:40 98.2 73 24 163/91 100 Room Air 10/24/20 20:17 173/96 10/24/20 20:15 124/77 10/24/20 20:05 88 24 Room Air 10/24/20 20:05 148/101 10/24/20 19:35 88 20 198/88 100 10/24/20 18:40 98.2 90 18 189/100 (129) 97 Room Air Intake and Output 10/24/20 10/25/20 19:00 07:00 Intake Total 680 ml Output Total 400 ml Balance 280 ml Intake Oral 680 ml Output Urine Total 400 ml Laboratory Tests Test 10/24/20 18:58 10/25/20 11:35 White Blood Count 7.0 K/UL (4.8-10.8) Red Blood Count 4.61 M/UL (4.70-6.10) L Hemoglobin 13.8 G/DL (14.2-18.0) L Hematocrit 42.7 % (42.0-52.0) Mean Corpuscular Volume 93 FL (80-99) Mean Corpuscular Hemoglobin 30.0 PG (27.0-31.0) Mean Corpuscular Hemoglobin Concent 32.4 G/DL (32.0-36.0) Red Cell Distribution Width 14.4 % (11.6-14.8) Platelet Count 148 K/UL (150-450) L Mean Platelet Volume 6.4 FL (6.5-10.1) L Neutrophils (%) (Auto) 78.2 % (45.0-75.0) H Lymphocytes (%) (Auto) 12.6 % (20.0-45.0) L Monocytes (%) (Auto) 8.0 % (1.0-10.0) Eosinophils (%) (Auto) 0.4 % (0.0-3.0) Basophils (%) (Auto) 0.8 % (0.0-2.0) Urine Color Pale yellow Urine Appearance Clear Urine pH 8 (4.5-8.0) Urine Specific [place] 1.010 (1.005-1.035) Urine Protein Negative (NEGATIVE) Urine Glucose (UA) Negative (NEGATIVE) Urine Ketones Negative (NEGATIVE) Urine Blood Negative (NEGATIVE) Urine Nitrite Negative (NEGATIVE) Urine Bilirubin Negative (NEGATIVE) Urine Urobilinogen Normal MG/DL (0.0-1.0) Urine Leukocyte Esterase Negative (NEGATIVE) Sodium Level 135 MMOL/L (136-145) L Potassium Level 4.0 MMOL/L (3.5-5.1) Chloride Level 100 MMOL/L (98-107) Carbon Dioxide Level 27 MMOL/L (21-32) Anion Gap 9 mmol/L (5-15) Blood Urea Nitrogen 14 mg/dL (7-18) Creatinine 1.0 MG/DL (0.55-1.30) Estimat Glomerular Filtration Rate > 60 mL/min (>60) Glucose Level 102 MG/DL (74-106) Calcium Level 9.3 MG/DL (8.5-10.1) Total Bilirubin 0.2 MG/DL (0.2-1.0) Aspartate Amino Transf (AST/SGOT) 28 U/L (15-37) Alanine Aminotransferase (ALT/SGPT) 32 U/L (12-78) Alkaline Phosphatase 88 U/L (46-116) Total Creatine Kinase 254 U/L (26-308) Troponin I 0.069 ng/mL (0.000-0.056) Pending Total Protein 8.9 G/DL (6.4-8.2) H Albumin 3.7 G/DL (3.4-5.0) Globulin 5.2 g/dL Albumin/Globulin Ratio 0.7 (1.0-2.7) L Urine Opiates Screen Negative (NEGATIVE) Acetaminophen Level < 2 MCG/ML (10-30) L Urine Barbiturates Screen Negative (NEGATIVE) Phencyclidine (PCP) Screen Negative (NEGATIVE) Urine Amphetamines Screen Negative (NEGATIVE) Urine Benzodiazepines Screen Negative (NEGATIVE) Urine Cocaine Screen Negative (NEGATIVE) Urine Marijuana (THC) Screen Negative (NEGATIVE) Serum Alcohol < 3 mg/dL Pro-B-Type Natriuretic Peptide Pending Height (Feet): 6 Height (Inches): 1.00 Weight (Pounds): 279 Medications Current Medications Medications (Trade) Dose Ordered Sig/Nicole Route PRN Reason Start Time Stop Time Status Last Admin Dose Admin Acetaminophen (Tylenol) 650 mg Q6H PRN ORAL FEVER 10/25/20 00:45 11/24/20 00:44 Acetaminophen (Tylenol) 650 mg Q6H PRN ORAL For Headache 10/25/20 00:45 11/24/20 00:44 Acetaminophen/ Hydrocodone Bitart (Rosalie 10/325) 1 tab Q4H PRN ORAL PAIN 4-10 10/25/20 06:30 11/01/20 06:29 Amlodipine Besylate (Norvasc) 10 mg DAILY ORAL 10/25/20 09:00 11/24/20 08:59 10/25/20 08:28 Ascorbic Acid (Vitamin C) 500 mg DAILY ORAL 10/25/20 09:00 11/24/20 08:59 10/25/20 08:28 Aspirin (ASA) 81 mg DAILY ORAL 10/26/20 09:00 12/10/20 08:59 Atorvastatin Calcium (Lipitor) 40 mg BEDTIME ORAL 10/25/20 21:00 01/23/21 20:59 Clonidine HCl (Catapres tab) 0.2 mg Q4H PRN ORAL For High Blood Pressure 10/25/20 11:00 01/23/21 10:59 Docusate Sodium (Colace) 100 mg DAILY ORAL 10/25/20 09:00 11/24/20 08:59 10/25/20 08:27 Folic Acid (Folate) 1 mg DAILY ORAL 10/25/20 09:00 11/24/20 08:59 10/25/20 08:28 Gabapentin (Neurontin) 300 mg THREE TIMES A DAY ORAL 10/25/20 09:00 11/24/20 08:59 10/25/20 09:53 Hydralazine HCl (Apresoline) 50 mg BID ORAL 10/25/20 18:00 01/23/21 17:59 Ibuprofen (Motrin) 600 mg Q6H PRN ORAL Mild Pain (Pain Scale 1-3) 10/25/20 01:30 11/24/20 01:29 Levetiracetam (Keppra) 500 mg QHS NG 10/25/20 21:00 12/09/20 20:59 Lorazepam (Ativan 2mg/ml 1ml) 1 mg Q6HR IVP 10/25/20 06:00 11/01/20 05:59 10/25/20 06:11 Metoprolol Tartrate (Lopressor) 25 mg Q12HR ORAL 10/25/20 09:00 01/23/21 08:59 10/25/20 08:29 Multivitamins (Multivitamins) 1 tab DAILY ORAL 10/25/20 09:00 11/24/20 08:59 10/25/20 08:28 Ondansetron HCl (Zofran) 4 mg Q6H PRN ORAL Nausea & Vomiting 10/25/20 01:30 11/24/20 01:29 Risperidone (RisperDAL) 2 mg HSPRN PRN ORAL bedtime agitation 10/25/20 01:30 12/09/20 01:29 Sennosides (Senokot) 17.2 mg QHS ORAL 10/25/20 21:00 11/24/20 20:59 Trazodone HCl (Desyrel) 50 mg BEDTIME ORAL 10/25/20 21:00 11/24/20 20:59 Vitamin D (Vitamin D) 5,000 unit DAILY ORAL 10/25/20 09:00 11/24/20 08:59 10/25/20 08:27 Assessment/Plan Problem List: (1) Status post CVA ICD Codes: Z86.73 - Personal history of transient ischemic attack (TIA), and cerebral infarction without residual deficits SNOMED: 325134969 (2) Seizure disorder ICD Codes: G40.909 - Epilepsy, unspecified, not intractable, without status epilepticus SNOMED: 823176556 (3) Elevated troponin ICD Codes: R77.8 - Other specified abnormalities of plasma proteins SNOMED: 464709794, 607219793, 916332653 (4) Altered mental status ICD Codes: R41.82 - Altered mental status, unspecified SNOMED: 862664525 (5) Head injury ICD Codes: S09.90XA - Unspecified injury of head, initial encounter SNOMED: 81787273 (6) Contusion of left hip ICD Codes: S70.02XA - Contusion of left hip, initial encounter SNOMED: 49072759 (7) Contusion of right knee ICD Codes: S80.01XA - Contusion of right knee, initial encounter SNOMED: 95747530 (8) Lower extremity edema Assessment & Plan: 60-year-old with male multimedical comorbidities presented with seizures identified lower extremity swelling potential cellulitis surgery called to evaluate long history of bilateral noted no erythema no tenderness unlikely DVT cardiac issues identified cardiology but appreciated on Lasix continue Lasix keep legs elevated while in bed okay to ambulate okay for diet remainder of exam fairly benign no acute trauma from seizure or falls. Thank you will follow with recommendations ICD Codes: R60.0 - Localized edema SNOMED: 064770185 David Temple Oct 25, 2020 11:52
--- NOTE | 2020-10-25 12:23 | Consultation ---
Consult Note Consult Note NEUROLOGY CONSULTATION DATE OF CONSULTATION: 10/25/2020 BEATRIZ RICE: Dr. Shah REASON FOR CONSULTATION: Seizure Disorder HISTORY OF PRESENT ILLNESS: This is a 60-year-old AA male patient with history of hypertension, seizure disorder for 2 years which he states started in 2019 after he experienced a stroke. He has not seen a neurologist and he has been only on Keppra 500mg po qHS since then, was [facility] from [facility] for [facility]. The patient is also taking gabapentin 300mg TID. He admits to left side weakness and numbness and tingling. The patient had his second vaccine COVID last week without any COVID symptoms. A CT of the brain revealed Interval mildly increased subtle hypodensity in the right basal ganglia region could reflect changes of chronic microvascular ischemia, although early ischemia could potentially have this appearance, no acute intracranial pathology. At the time of my evaluation, the patient denies any headaches, dizziness. He admits to weakness on the left side, and numbness and tingling in bilat hands and feet. He does not recall the seizure he had recently but does state to me that he has frequent seizure episodes about 1 every month. He remembers taking Depakote in the past not sure for how long and when he stopped taking it. He ambulates with a FWW. We were consulted for seizure disorder. PAST MEDICAL HISTORY: As mentioned above. FAMILY HISTORY: Noncontributory. SOCIAL HISTORY: He lives in group home. Does not smoke or drinkalcohol. MEDICATIONS: Reviewed ALLERGIES: He has no known drug allergies. REVIEW OF SYSTEMS: Negative other than what was mentioned in the history of present illness. Physical Exam VSS General: Pt is awake and oriented x4 he is getting a echo at bedside with tech Neuro: Awake and Oriented has insight to hospitalization Comprehension is intact Language parameters intact. Cranial nerve II- XII tested are tested PERRLA, no nystagmus No facial droop Tongue is midline Hearing intact. Motor: No involuntary movement Bilat upper extremity strength is 3/5, bilat lower extremity strength 3/5 Gait not tested, Sensation intact to light touch bilat. LABORATORY DATA: White count 7, hemoglobin 13.8, hematocrit 42.7, platelet m148. Sodium 135, potassium 4.0, BUN of 14, creatinine 1.1, glucose of 102. IMAGING:CT Head: 1. Interval mildly increased subtle hypodensity in the right basal ganglia region could reflect changes of chronic microvascular ischemia, although early ischemia could potentially have this appearance. 2. Correlate with presentation and consider additional imaging if felt to alter clinical management. 3. Otherwise no acute intracranial abnormality. 4. Otherwise unremarkable study. ASSESSMENT AND REC': 1. Seizure Disorder --> pt is only on Keppra 500mg po q HS at his nursing facility upon medication reconciliation from his chart --> he states he was on Depakote in the past --> We will increase Keppra frequency to BID at this time. 2. Elevated troponin 3. Possible congestive heart failure. --> per cards getting 2D echo 4. Hypertension. Thank you for allowing us to participate in patient's care, plan of care was reviewed with Dr. Jevon Hannah who agrees. Ivana Bruner NP Oct 25, 2020 12:23
--- NOTE | 2020-10-25 13:44 | Diagnostic Imaging Report ---
EXAM: ULTRASOUND Venous Duplex Scan Moustapha Leg CLINICAL HISTORY: Neck pain and edema. COMPARISON: None TECHNIQUE: Doppler examination include grayscale images obtained with and without compression, and color and spectral doppler analysis. FINDINGS: Doppler examination shows normal spontaneity, phasicity, compressibility in the bilateral lower extremities. There is no thrombus identified by grayscale. Normal color and spectral flow is identified. There is no evidence of valvular incompetency or insufficiency. Mild superficial soft tissue edema noted. IMPRESSION: NO EVIDENCE OF DVT.
--- NOTE | 2020-10-25 14:03 | NUR ---
NURSE NOTES: Contacted Dr. Henriquez about patient elevated troponin levels.
--- NOTE | 2020-10-25 14:07 | NUR ---
[facility] - CM: [id number] [phone] Fax clinicals to: [phone] [facility] Fax Clinicals to: [phone] & [phone]
--- NOTE | 2020-10-25 15:08 | History and Physical ---
History of Present Illness General Date patient seen: Oct 25, 2020 Time patient seen: 15:06 Reason for Hospitalization: Seizure Present Illness HPI 60 year old man with schizophrenia, epilepsy, HTN, history of CVA with left sided residual hemiparesis, who was sent to ED from SNF for breakthrough seizures. Patient is a limited historian, can provide details of the presentation. Information obtained from EMR. Apparently he had 4 episodes of seizure yesterday - in ED had another GTC seizure, given Ativan IVP x 1. Patient currently at baseline mentation, denies any complaints. Allergies: Coded Allergies: No Known Allergies (Unverified , 08/17/20) COVID-19 Screening Contact w/high risk pt: No Recent Travel to affected area: No Experienced COVID-19 symptoms?: No Medication History Scheduled Amlodipine Besylate (Norvasc), 10 MG ORAL DAILY, (Reported) Ascorbic Acid* (Vitamin C*), 500 MG ORAL DAILY, (Reported) Cholecalciferol (Vitamin D3) (Vitamin D3*), 5,000 UNIT PO DAILY, (Reported) Docusate Sodium (Docusate Sodium), 100 MG ORAL DAILY, (Reported) Folic Acid* (Folic Acid*), 1 MG ORAL DAILY, (Reported) Gabapentin (Gabapentin), 300 MG ORAL THREE TIMES A DAY, (Reported) Hydralazine HCl (Hydralazine HCl), 100 MG ORAL BEDTIME, (Reported) Levetiracetam (Levetiracetam), 500 MG PO BEDTIME, (Reported) Lorazepam* (Lorazepam*), 1 MG PO Q6HR, (Reported) Metoprolol Tartrate* (Metoprolol Tartrate*), 50 MG ORAL DAILY, (Reported) Sennosides/Docusate Sodium (Senna-S 8.6-50 mg Tablet), 2 TAB PO BEDTIME, (Reported) Trazodone* (Trazodone*), 50 MG ORAL BEDTIME, (Reported) Scheduled PRN Hydrocodone Bit/Acetaminophen 10-325* (Hydrocodon-Acetaminophn 10-325*), 1 TAB ORAL Q4H PRN for PRN, (Reported) Ibuprofen* (Motrin*), 600 MG ORAL Q6H PRN for For Pain Ondansetron (Zofran), 4 MG ORAL Q6H PRN for Nausea & Vomiting, (Reported) Risperidone* (Risperdal*), 2 MG ORAL DAILY PRN for bedtime, (Reported) Miscellaneous Medications Multivitamin (Multi-Vitamin Daily), 1 TAB PO, (Reported) Patient History Healthcare decision maker N Resuscitation status Advanced Directive on File Review of Systems Constitutional: Denies: fever Cardiovascular: Denies: chest pain Gastrointestinal: Denies: abdominal pain Genitourinary: Denies: dysuria Musculoskeletal: Denies: back pain Physical Exam General Appearance: no apparent distress, alert HEENT: atraumatic, anicteric Neck: supple, normal inspection Respiratory/Chest: lungs clear, normal breath sounds Cardiovascular/Chest: normal rate, regular rhythm Abdomen: non tender, soft Last 24 Hour Vital Signs Date Time Temp Pulse Resp B/P (MAP) Pulse Ox O2 Delivery O2 Flow Rate FiO2 10/25/20 12:38 89 20 140/89 96 10/25/20 12:08 89 20 142/92 98 10/25/20 12:00 66 10/25/20 12:00 99.3 65 20 137/71 (93) 98 10/25/20 09:00 Room Air 10/25/20 08:29 89 142/92 10/25/20 08:28 89 142/92 10/25/20 08:00 89 10/25/20 08:00 99.2 72 20 145/87 (106) 98 10/25/20 06:11 86 18 137/98 97 10/25/20 04:00 99.3 85 17 140/97 (111) 97 10/25/20 01:30 173/87 10/25/20 00:50 Room Air 10/25/20 00:25 100.0 72 20 172/87 (115) 98 10/25/20 00:25 72 10/25/20 00:00 98.8 78 23 162/88 96 10/24/20 21:40 98.2 73 24 163/91 100 Room Air 10/24/20 20:17 173/96 10/24/20 20:15 124/77 10/24/20 20:05 88 24 Room Air 10/24/20 20:05 148/101 10/24/20 19:35 88 20 198/88 100 10/24/20 18:40 98.2 90 18 189/100 (129) 97 Room Air Intake and Output 10/24/20 10/25/20 19:00 07:00 Intake Total 680 ml Output Total 400 ml Balance 280 ml Intake Oral 680 ml Output Urine Total 400 ml Laboratory Tests Test 10/24/20 18:58 10/25/20 11:35 White Blood Count 7.0 K/UL (4.8-10.8) Red Blood Count 4.61 M/UL (4.70-6.10) L Hemoglobin 13.8 G/DL (14.2-18.0) L Hematocrit 42.7 % (42.0-52.0) Mean Corpuscular Volume 93 FL (80-99) Mean Corpuscular Hemoglobin 30.0 PG (27.0-31.0) Mean Corpuscular Hemoglobin Concent 32.4 G/DL (32.0-36.0) Red Cell Distribution Width 14.4 % (11.6-14.8) Platelet Count 148 K/UL (150-450) L Mean Platelet Volume 6.4 FL (6.5-10.1) L Neutrophils (%) (Auto) 78.2 % (45.0-75.0) H Lymphocytes (%) (Auto) 12.6 % (20.0-45.0) L Monocytes (%) (Auto) 8.0 % (1.0-10.0) Eosinophils (%) (Auto) 0.4 % (0.0-3.0) Basophils (%) (Auto) 0.8 % (0.0-2.0) Urine Color Pale yellow Urine Appearance Clear Urine pH 8 (4.5-8.0) Urine Specific [place] 1.010 (1.005-1.035) Urine Protein Negative (NEGATIVE) Urine Glucose (UA) Negative (NEGATIVE) Urine Ketones Negative (NEGATIVE) Urine Blood Negative (NEGATIVE) Urine Nitrite Negative (NEGATIVE) Urine Bilirubin Negative (NEGATIVE) Urine Urobilinogen Normal MG/DL (0.0-1.0) Urine Leukocyte Esterase Negative (NEGATIVE) Sodium Level 135 MMOL/L (136-145) L Potassium Level 4.0 MMOL/L (3.5-5.1) Chloride Level 100 MMOL/L (98-107) Carbon Dioxide Level 27 MMOL/L (21-32) Anion Gap 9 mmol/L (5-15) Blood Urea Nitrogen 14 mg/dL (7-18) Creatinine 1.0 MG/DL (0.55-1.30) Estimat Glomerular Filtration Rate > 60 mL/min (>60) Glucose Level 102 MG/DL (74-106) Calcium Level 9.3 MG/DL (8.5-10.1) Total Bilirubin 0.2 MG/DL (0.2-1.0) Aspartate Amino Transf (AST/SGOT) 28 U/L (15-37) Alanine Aminotransferase (ALT/SGPT) 32 U/L (12-78) Alkaline Phosphatase 88 U/L (46-116) Total Creatine Kinase 254 U/L (26-308) Troponin I 0.069 ng/mL (0.000-0.056) 0.088 ng/mL (0.000-0.056) Total Protein 8.9 G/DL (6.4-8.2) H Albumin 3.7 G/DL (3.4-5.0) Globulin 5.2 g/dL Albumin/Globulin Ratio 0.7 (1.0-2.7) L Urine Opiates Screen Negative (NEGATIVE) Acetaminophen Level < 2 MCG/ML (10-30) L Urine Barbiturates Screen Negative (NEGATIVE) Phencyclidine (PCP) Screen Negative (NEGATIVE) Urine Amphetamines Screen Negative (NEGATIVE) Urine Benzodiazepines Screen Negative (NEGATIVE) Urine Cocaine Screen Negative (NEGATIVE) Urine Marijuana (THC) Screen Negative (NEGATIVE) Serum Alcohol < 3 mg/dL Pro-B-Type Natriuretic Peptide 851 pg/mL (0-125) H Height (Feet): 6 Height (Inches): 1.00 Weight (Pounds): 279 Medications Current Medications Medications (Trade) Dose Ordered Sig/Nicole Route PRN Reason Start Time Stop Time Status Last Admin Dose Admin Acetaminophen (Tylenol) 650 mg Q6H PRN ORAL FEVER 10/25/20 00:45 11/24/20 00:44 Acetaminophen (Tylenol) 650 mg Q6H PRN ORAL For Headache 10/25/20 00:45 11/24/20 00:44 Acetaminophen/ Hydrocodone Bitart ([place] 10/325) 1 tab Q4H PRN ORAL PAIN 4-10 10/25/20 06:30 11/01/20 06:29 Amlodipine Besylate (Norvasc) 10 mg DAILY ORAL 10/25/20 09:00 11/24/20 08:59 10/25/20 08:28 Ascorbic Acid (Vitamin C) 500 mg DAILY ORAL 10/25/20 09:00 11/24/20 08:59 10/25/20 08:28 Aspirin (ASA) 81 mg DAILY ORAL 10/26/20 09:00 12/10/20 08:59 Atorvastatin Calcium (Lipitor) 40 mg BEDTIME ORAL 10/25/20 21:00 01/23/21 20:59 Clonidine HCl (Catapres tab) 0.2 mg Q4H PRN ORAL For High Blood Pressure 10/25/20 11:00 01/23/21 10:59 Docusate Sodium (Colace) 100 mg DAILY ORAL 10/25/20 09:00 11/24/20 08:59 10/25/20 08:27 Folic Acid (Folate) 1 mg DAILY ORAL 10/25/20 09:00 11/24/20 08:59 10/25/20 08:28 Gabapentin (Neurontin) 300 mg THREE TIMES A DAY ORAL 10/25/20 09:00 11/24/20 08:59 10/25/20 12:08 Hydralazine HCl (Apresoline) 50 mg BID ORAL 10/25/20 18:00 01/23/21 17:59 Ibuprofen (Motrin) 600 mg Q6H PRN ORAL Mild Pain (Pain Scale 1-3) 10/25/20 01:30 11/24/20 01:29 Levetiracetam (Keppra) 500 mg QHS NG 10/25/20 21:00 12/09/20 20:59 Lorazepam (Ativan 2mg/ml 1ml) 1 mg Q6HR IVP 10/25/20 06:00 11/01/20 05:59 10/25/20 12:08 Metoprolol Tartrate (Lopressor) 25 mg Q12HR ORAL 10/25/20 09:00 01/23/21 08:59 10/25/20 08:29 Multivitamins (Multivitamins) 1 tab DAILY ORAL 10/25/20 09:00 11/24/20 08:59 10/25/20 08:28 Ondansetron HCl (Zofran) 4 mg Q6H PRN ORAL Nausea & Vomiting 10/25/20 01:30 3/27/21 01:29 Risperidone (RisperDAL) 2 mg HSPRN PRN ORAL bedtime agitation 10/25/20 21:00 12/09/20 20:59 Sennosides (Senokot) 17.2 mg QHS ORAL 10/25/20 21:00 11/24/20 20:59 Trazodone HCl (Desyrel) 50 mg BEDTIME ORAL 10/25/20 21:00 11/24/20 20:59 Vitamin D (Vitamin D) 5,000 unit DAILY ORAL 10/25/20 09:00 11/24/20 08:59 10/25/20 08:27 Assessment/Plan Assessment/Plan: 60 year old man with schizophrenia, epilepsy, HTN, history of CVA with left sided residual hemiparesis, who presented with breakthrough seizure #Breakthrough seizure #Epilepsy #NSTEMI - likely type 2, demand ischemia in the setting of multiple seizures #history of CVA with left sided residual weakness #Hypertensive urgency #Schizophrenia -admit to telemetry -Cardiac monitoring -Serial troponin -cont ASA, Statin, metoprolol, amlodipine and hydralazine -continue Keppra - possible increase to bid -Neurology eval -Cardiology eval I spent 77 minutes on this patient's case, and 40 minutes was dedicated to counseling and/or care coordination with ED team, RN, solutions consultant Keenan Lu MD Oct 25, 2020 15:08
[2020-10-25] MEDS: HydrALAZINE 50mg tab ORAL SCH (17:26)
--- NOTE | 2020-10-25 19:14 | NUR ---
NURSE HAND-OFF REPORT: Important Events on Shift:[EKG, 2D Echo, Venous Duplex, troponin Lab] Patient Status: [Full code] Diet: [Regular diet] Pending Orders: [N/A] Pending Results/Labs:[N/a] Pending MD notification:[N/A] Latest Vital Signs: Temperature 99.1 , Pulse 62 , B/P 131 /64 , Respiratory Rate 20 , O2 SAT 97 , Room Air, O2 Flow Rate . Vital Sign Comment: [] EKG Rhythm: SR w/ 1 degree AVB & BBB Rhythm change?: N MD Notified?: - MD Response: Latest Chris Fall Score: 70 Fall Risk: High Risk Safety Measures: Call light Within Reach, Bed Alarm Zone 2, Side Rails Side Rails x3, Bed position Low and Locked. Fall Precautions: Yellow Socks Patient Fall Education Report given to [REVA Tellez].
--- NOTE | 2020-10-25 19:15 | NUR ---
NURSE NOTES: Patient received from REVA Talamantes. Patient is sleeping but easily arousable, appears to be comfortable. Patient is on room air with no signs of acute respiratory distress noted. Patient noted to have a urinal in bed. Patient has an IV on left hand 22 gauge, saline locked. Bed is in the lowest position and locked, call light within reach. Will continue to monitor.
--- NOTE | 2020-10-25 19:16 | Cardiology Report ---
APPROVED REPORT EKG Measurement Heart [id number] <Conclusion> Sinus rhythm with 1st degree AV block Possible Left atrial enlargement Left bundle branch block Abnormal ECG
--- NOTE | 2020-10-25 19:52 | NUR ---
NURSE NOTES: Contacted and left a message to Dr. Henriquez regarding patient's latest Troponin level. Awaiting for call back.
[2020-10-25] MEDS ORDERED: levETIRAcetam 500mg/5ml Liquid NG SCH (21:00)
[2020-10-25] MEDS ORDERED: HydrALAZINE 50mg tab ORAL SCH (21:00)
[2020-10-25] MEDS: TraZODone 50mg tab ORAL SCH (21:07)
[2020-10-25] MEDS: Sennosides 8.6mg tab ORAL SCH (21:08)
[2020-10-25] MEDS: Atorvastatin 20mg tab ORAL SCH (21:08)
[2020-10-26] VITALS: BP 128/81
[2020-10-26] MEDS: LORazepam Inj 2mg/ml 1ml IVP SCH ×4 (00:14→17:46)
[2020-10-26 04:00] VITALS: BP 148/74
[2020-10-26 06:48] LABS: HEMATOCRIT 38.6 % (42.0-52.0); HEMOGLOBIN 12.9 G/DL (14.2-18.0); LYMPHOCYTES % (AUTO) 23.9 % (20.0-45.0); MEAN CORPUSCULAR VOLUME 90 FL (80-99); MONOCYTES % (AUTO) 13.2 % (1.0-10.0); NEUTROPHILS % (AUTO) 60.9 % (45.0-75.0); PLATELET COUNT 144 K/UL (150-450); RED BLOOD COUNT 4.28 M/UL (4.70-6.10); RED CELL DISTRIBUTION WIDTH 13.4 % (11.6-14.8); WHITE BLOOD COUNT 5.7 K/UL (4.8-10.8)
[2020-10-26 07:06] LABS: ANION GAP 8 mmol/L (5-15); BLOOD UREA NITROGEN 21 mg/dL (7-18); CALCIUM 8.8 MG/DL (8.5-10.1); CARBON DIOXIDE 26 MMOL/L (21-32); CHLORIDE 106 MMOL/L (98-107); CREATININE 1.1 MG/DL (0.55-1.30); PHOSPHORUS 3.5 MG/DL (2.5-4.9); POTASSIUM 3.9 MMOL/L (3.5-5.1); SODIUM 140 MMOL/L (136-145)
--- NOTE | 2020-10-26 07:58 | NUR ---
NURSE HAND-OFF REPORT: Important Events on Shift:[Notified Dr. Henriquez regarding patient's troponin level. AM troponin level decreased from 0.127 to 0.072] Patient Status: [Stable] Diet: [Regular diet] Pending Orders: [] Pending Results/Labs:[] Pending MD notification:[] Latest Vital Signs: Temperature 98.2 , Pulse 63 , B/P 148 /74 , Respiratory Rate 20 , O2 SAT 97 , Room Air, O2 Flow Rate . Vital Sign Comment: [] EKG Rhythm: Sinus Rhythm Rhythm change?: N MD Notified?: - MD Response: Latest Chris Fall Score: 70 Fall Risk: High Risk Safety Measures: Call light Within Reach, Bed Alarm Zone 2, Side Rails Side Rails x3, Bed position Low and Locked. Fall Precautions: Yellow Socks Patient Fall Education Report given to [REVA Shelton].
[2020-10-26 08:00] VITALS: BP 137/72
[2020-10-26] MEDS: Vitamin D 1000 units Tab ORAL SCH (08:55)
[2020-10-26] MEDS: HydrALAZINE 50mg tab ORAL SCH ×2 (08:56→17:45)
[2020-10-26] MEDS: Aspirin Baby 81mg ORAL SCH (08:56)
[2020-10-26] MEDS: HYDROcodone/Acetamin 10/325 tab ORAL PRN (08:57)
[2020-10-26] MEDS: Ascorbic Acid 500mg tab ORAL SCH (08:57)
[2020-10-26] MEDS: Docusate 100mg cap ORAL SCH (08:58)
--- NOTE | 2020-10-26 10:01 | Pulmonology Progress Note ---
Subjective ROS Limited/Unobtainable: No Interval Events: none major reported per nursing Constitutional: Reports: no symptoms HEENT: Repors: no symptoms Respiratory: Reports: no symptoms Cardiovascular: Reports: no symptoms Gastrointestinal/Abdominal: Reports: no symptoms Genitourinary: Reports: no symptoms Allergies: Coded Allergies: No Known Allergies (Unverified , 08/17/20) Objective Last 24 Hour Vital Signs Date Time Temp Pulse Resp B/P (MAP) Pulse Ox O2 Delivery O2 Flow Rate FiO2 10/26/20 08:57 66 137/72 10/26/20 08:56 137/72 10/26/20 08:56 66 137/72 10/26/20 08:00 99.1 66 18 137/72 (93) 99 10/26/20 06:02 63 20 148/74 97 10/26/20 04:00 64 10/26/20 04:00 98.2 63 20 148/74 (98) 97 10/26/20 00:14 65 24 128/81 98 10/26/20 00:00 61 10/26/20 00:00 98.1 64 20 128/81 (97) 97 10/25/20 23:00 Room Air 10/25/20 21:08 65 120/56 10/25/20 20:00 97.4 65 20 120/56 (77) 98 10/25/20 20:00 67 10/25/20 17:57 62 20 131/64 97 10/25/20 17:27 63 20 131/64 98 10/25/20 17:26 131/64 10/25/20 16:00 99.1 63 20 131/64 (86) 97 10/25/20 16:00 60 10/25/20 12:38 89 20 140/89 96 10/25/20 12:08 89 20 142/92 98 10/25/20 12:00 66 10/25/20 12:00 99.3 65 20 137/71 (93) 98 Intake and Output 10/25/20 10/26/20 19:00 07:00 Intake Total 750 ml 480 ml Output Total 900 ml Balance 750 ml -420 ml Intake Oral 750 ml 480 ml Output Urine Total 900 ml # Voids 2 3 # Bowel Movements 2 General Appearance: no acute distress HEENT: normocephalic Respiratory: lungs clear Cardiovascular: normal rate Abdomen: soft, non tender Laboratory Tests 2/25/21 11:35: Troponin I 0.088H, Pro-B-Type Natriuretic Peptide 851H 10/25/20 18:10: Troponin I 0.127H 10/26/20 06:22: Troponin I 0.072H, White Blood Count 5.7, Red Blood Count 4.28L, Hemoglobin 12.9L, Hematocrit 38.6L, Mean Corpuscular Volume 90, Mean Corpuscular Hemoglobin 30.2, Mean Corpuscular Hemoglobin Concent 33.4, Red Cell Distribution Width 13.4, Platelet Count 144L, Mean Platelet Volume 6.9, Neutrophils (%) (Auto) 60.9, Lymphocytes (%) (Auto) 23.9, Monocytes (%) (Auto) 13.2H, Eosinophils (%) (Auto) 1.0, Basophils (%) (Auto) 1.0, Sodium Level 140, Potassium Level 3.9, Chloride Level 106, Carbon Dioxide Level 26, Anion Gap 8, Blood Urea Nitrogen 21H, Creatinine 1.1, Estimat Glomerular Filtration Rate > 60, Glucose Level 103, Calcium Level 8.8, Phosphorus Level 3.5, Magnesium Level 2.0 Current Medications Medications (Trade) Dose Ordered Sig/Nicole Route PRN Reason Start Time Stop Time Status Last Admin Dose Admin Acetaminophen (Tylenol) 650 mg Q6H PRN ORAL FEVER 10/25/20 00:45 11/24/20 00:44 Acetaminophen (Tylenol) 650 mg Q6H PRN ORAL For Headache 10/25/20 00:45 11/24/20 00:44 Acetaminophen/ Hydrocodone Bitart ([place] 10/325) 1 tab Q4H PRN ORAL PAIN 4-10 10/25/20 06:30 11/01/20 06:29 10/26/20 08:57 Amlodipine Besylate (Norvasc) 10 mg DAILY ORAL 10/25/20 09:00 11/24/20 08:59 10/26/20 08:57 Ascorbic Acid (Vitamin C) 500 mg DAILY ORAL 10/25/20 09:00 11/24/20 08:59 10/26/20 08:57 Aspirin (ASA) 81 mg DAILY ORAL 10/26/20 09:00 12/10/20 08:59 10/26/20 08:56 Atorvastatin Calcium (Lipitor) 40 mg BEDTIME ORAL 10/25/20 21:00 01/23/21 20:59 10/25/20 21:08 Clonidine HCl (Catapres tab) 0.2 mg Q4H PRN ORAL For High Blood Pressure 10/25/20 11:00 01/23/21 10:59 Docusate Sodium (Colace) 100 mg DAILY ORAL 10/25/20 09:00 11/24/20 08:59 10/26/20 08:58 Folic Acid (Folate) 1 mg DAILY ORAL 10/25/20 09:00 11/24/20 08:59 10/26/20 08:57 Gabapentin (Neurontin) 300 mg THREE TIMES A DAY ORAL 10/25/20 09:00 11/24/20 08:59 10/25/20 17:26 Hydralazine HCl (Apresoline) 50 mg BID ORAL 10/25/20 18:00 01/23/21 17:59 10/26/20 08:56 Ibuprofen (Motrin) 600 mg Q6H PRN ORAL Mild Pain (Pain Scale 1-3) 10/25/20 01:30 11/24/20 01:29 Levetiracetam (Keppra) 500 mg QHS NG 10/25/20 21:00 12/09/20 20:59 10/25/20 21:06 Lorazepam (Ativan 2mg/ml 1ml) 1 mg Q6HR IVP 10/25/20 06:00 11/01/20 05:59 10/26/20 06:02 Metoprolol Tartrate (Lopressor) 25 mg Q12HR ORAL 10/25/20 09:00 01/23/21 08:59 10/26/20 08:56 Multivitamins (Multivitamins) 1 tab DAILY ORAL 10/25/20 09:00 11/24/20 08:59 10/26/20 08:56 Ondansetron HCl (Zofran) 4 mg Q6H PRN ORAL Nausea & Vomiting 10/25/20 01:30 11/24/20 01:29 Risperidone (RisperDAL) 2 mg HSPRN PRN ORAL bedtime agitation 10/25/20 21:00 12/09/20 20:59 Sennosides (Senokot) 17.2 mg QHS ORAL 10/25/20 21:00 11/24/20 20:59 10/25/20 21:08 Trazodone HCl (Desyrel) 50 mg BEDTIME ORAL 10/25/20 21:00 11/24/20 20:59 10/25/20 21:07 Vitamin D (Vitamin D) 5,000 unit DAILY ORAL 10/25/20 09:00 11/24/20 08:59 10/26/20 08:55 Assessment/Plan Assessment/Plan 1. Seizure -seen by neuro - Keppra dosage adjusted 2. Risk of aspiration/pneumonia, due to #1 -Patient is afebrile -Monitor for fever, and seizure - f/u CXR if indicated 3. Smoker -Patient educated on smoking cessation 4. Elevated troponin -Serial troponin; trops downtrending - seen by cardio 5. Leg edema - V/D US of legs negative -> on SCD for DVT ppx The care for this patient was discussed with my supervising physician. Time spent for this case was approximately 31 minutes. Kevin Anderson Oct 26, 2020 10:01
[2020-10-26] MEDS: Gabapentin 300 MG/6 ML Soln ORAL SCH ×3 (10:10→17:45)
--- NOTE | 2020-10-26 10:13 | Nephrology Progress Note ---
Assessment/Plan Plan #Breakthrough seizure #Epilepsy #NSTEMI - likely type 2, demand ischemia in the setting of multiple seizures #history of CVA with left sided residual weakness #Hypertensive urgency #Schizophrenia -admit to telemetry -Cardiac monitoring -Serial troponin -cont ASA, Statin, metoprolol, amlodipine and hydralazine -continue Keppra - possible increase to bid -Neurology eval -Cardiology eval Subjective ROS Limited/Unobtainable: No Constitutional: Reports: weakness HEENT: Denies: no symptoms, eye pain, blurred vision, tearing, double vision, ear pain, ear discharge, nose pain, nose congestion, throat pain, throat swelling, mouth pain, mouth swelling, other Genitourinary: Denies: no symptoms, burning, discharge, frequency, flank pain, hematuria, incontinence, pain, urgency, other Neurologic/Psychiatric: Denies: no symptoms, anxiety, depressed, emotional problems, headache, numbness, paresthesia, pre-existing deficit, seizure, tingling, tremors, weakness, other Objective Objective Last 24 Hour Vital Signs Date Time Temp Pulse Resp B/P (MAP) Pulse Ox O2 Delivery O2 Flow Rate FiO2 10/26/20 08:57 66 137/72 10/26/20 08:56 137/72 10/26/20 08:56 66 137/72 10/26/20 08:00 99.1 66 18 137/72 (93) 99 10/26/20 06:02 63 20 148/74 97 10/26/20 04:00 64 10/26/20 04:00 98.2 63 20 148/74 (98) 97 10/26/20 00:14 65 24 128/81 98 10/26/20 00:00 61 10/26/20 00:00 98.1 64 20 128/81 (97) 97 10/25/20 23:00 Room Air 10/25/20 21:08 65 120/56 10/25/20 20:00 97.4 65 20 120/56 (77) 98 10/25/20 20:00 67 10/25/20 17:57 62 20 131/64 97 10/25/20 17:27 63 20 131/64 98 10/25/20 17:26 131/64 10/25/20 16:00 99.1 63 20 131/64 (86) 97 10/25/20 16:00 60 2/25/21 12:38 89 20 140/89 96 10/25/20 12:08 89 20 142/92 98 10/25/20 12:00 66 10/25/20 12:00 99.3 65 20 137/71 (93) 98 Intake and Output 10/25/20 10/26/20 19:00 07:00 Intake Total 750 ml 480 ml Output Total 900 ml Balance 750 ml -420 ml Intake Oral 750 ml 480 ml Output Urine Total 900 ml # Voids 2 3 # Bowel Movements 2 Laboratory Tests 10/25/20 11:35: Troponin I 0.088H, Pro-B-Type Natriuretic Peptide 851H 10/25/20 18:10: Troponin I 0.127H 10/26/20 06:22: Troponin I 0.072H, White Blood Count 5.7, Red Blood Count 4.28L, Hemoglobin 12.9L, Hematocrit 38.6L, Mean Corpuscular Volume 90, Mean Corpuscular Hemoglobin 30.2, Mean Corpuscular Hemoglobin Concent 33.4, Red Cell Distribution Width 13.4, Platelet Count 144L, Mean Platelet Volume 6.9, Neutrophils (%) (Auto) 60.9, Lymphocytes (%) (Auto) 23.9, Monocytes (%) (Auto) 13.2H, Eosinophils (%) (Auto) 1.0, Basophils (%) (Auto) 1.0, Sodium Level 140, Potassium Level 3.9, Chloride Level 106, Carbon Dioxide Level 26, Anion Gap 8, Blood Urea Nitrogen 21H, Creatinine 1.1, Estimat Glomerular Filtration Rate > 60, Glucose Level 103, Calcium Level 8.8, Phosphorus Level 3.5, Magnesium Level 2.0 Height (Feet): 6 Height (Inches): 1.00 Weight (Pounds): 279 Nicky Munoz M.D. Oct 26, 2020 10:13
--- NOTE | 2020-10-26 11:18 | Surgery Progress Note ---
Surgery Progress Note Subjective Symptoms: improved, tolerating diet, passing flatus, BM Objective Last 24 Hour Vital Signs Date Time Temp Pulse Resp B/P (MAP) Pulse Ox O2 Delivery O2 Flow Rate FiO2 10/26/20 08:57 66 137/72 10/26/20 08:56 137/72 10/26/20 08:56 66 137/72 10/26/20 08:00 99.1 66 18 137/72 (93) 99 10/26/20 06:02 63 20 148/74 97 10/26/20 04:00 64 10/26/20 04:00 98.2 63 20 148/74 (98) 97 10/26/20 00:14 65 24 128/81 98 10/26/20 00:00 61 10/26/20 00:00 98.1 64 20 128/81 (97) 97 10/25/20 23:00 Room Air 10/25/20 21:08 65 120/56 10/25/20 20:00 97.4 65 20 120/56 (77) 98 10/25/20 20:00 67 10/25/20 17:57 62 20 131/64 97 10/25/20 17:27 63 20 131/64 98 10/25/20 17:26 131/64 10/25/20 16:00 99.1 63 20 131/64 (86) 97 10/25/20 16:00 60 10/25/20 12:38 89 20 140/89 96 10/25/20 12:08 89 20 142/92 98 10/25/20 12:00 66 10/25/20 12:00 99.3 65 20 137/71 (93) 98 I&O Intake and Output 10/25/20 10/26/20 19:00 07:00 Intake Total 750 ml 480 ml Output Total 900 ml Balance 750 ml -420 ml Intake Oral 750 ml 480 ml Output Urine Total 900 ml # Voids 2 3 # Bowel Movements 2 Dressing: saturated Cardiovascular: RSR Respiratory: decreased breath sounds Abdomen: soft, non-tender, present bowel sounds, non-distended Extremities: no tenderness, no cyanosis Laboratory Tests Test 10/25/20 11:35 10/25/20 18:10 10/26/20 06:22 Troponin I 0.088 ng/mL (0.000-0.056) 0.127 ng/mL (0.000-0.056) 0.072 ng/mL (0.000-0.056) Pro-B-Type Natriuretic Peptide 851 pg/mL (0-125) H White Blood Count 5.7 K/UL (4.8-10.8) Red Blood Count 4.28 M/UL (4.70-6.10) L Hemoglobin 12.9 G/DL (14.2-18.0) L Hematocrit 38.6 % (42.0-52.0) L Mean Corpuscular Volume 90 FL (80-99) Mean Corpuscular Hemoglobin 30.2 PG (27.0-31.0) Mean Corpuscular Hemoglobin Concent 33.4 G/DL (32.0-36.0) Red Cell Distribution Width 13.4 % (11.6-14.8) Platelet Count 144 K/UL (150-450) L Mean Platelet Volume 6.9 FL (6.5-10.1) Neutrophils (%) (Auto) 60.9 % (45.0-75.0) Lymphocytes (%) (Auto) 23.9 % (20.0-45.0) Monocytes (%) (Auto) 13.2 % (1.0-10.0) H Eosinophils (%) (Auto) 1.0 % (0.0-3.0) Basophils (%) (Auto) 1.0 % (0.0-2.0) Sodium Level 140 MMOL/L (136-145) Potassium Level 3.9 MMOL/L (3.5-5.1) Chloride Level 106 MMOL/L (98-107) Carbon Dioxide Level 26 MMOL/L (21-32) Anion Gap 8 mmol/L (5-15) Blood Urea Nitrogen 21 mg/dL (7-18) H Creatinine 1.1 MG/DL (0.55-1.30) Estimat Glomerular Filtration Rate > 60 mL/min (>60) Glucose Level 103 MG/DL (74-106) Calcium Level 8.8 MG/DL (8.5-10.1) Phosphorus Level 3.5 MG/DL (2.5-4.9) Magnesium Level 2.0 MG/DL (1.8-2.4) Plan Problems: (1) Status post CVA (2) Seizure disorder (3) Elevated troponin (4) Altered mental status (5) Head injury (6) Contusion of left hip (7) Contusion of right knee (8) Lower extremity edema Assessment & Plan: 60-year-old with male multimedical comorbidities presented with seizures identified lower extremity swelling potential cellulitis surgery called to evaluate long history of bilateral noted no erythema no tenderness unlikely DVT cardiac issues identified cardiology but appreciated on Lasix continue Lasix keep legs elevated while in bed okay to ambulate okay for diet remainder of exam fairly benign no acute trauma from seizure or falls. Thank you will follow with recommendations David Temple Oct 26, 2020 11:18
[2020-10-26 12:00] VITALS: BP 146/84
--- NOTE | 2020-10-26 12:43 | NUR ---
INSURANCE [facility] - CM: Javier miguel [id number] Fax clinicals to: [phone] [facility] & [phone]
--- NOTE | 2020-10-26 13:16 | Neurology Progress Note ---
Interim History Interim History ROS Limited/Unobtainable: No Events: no events Objective Physical Exam Last Vital Signs Date Time Temp Pulse Resp B/P (MAP) Pulse Ox O2 Delivery O2 Flow Rate FiO2 10/26/20 12:32 62 18 146/84 95 10/26/20 12:00 97.3 10/26/20 09:00 Room Air Laboratory Tests Test 10/25/20 18:10 10/26/20 06:22 Troponin I 0.127 ng/mL (0.000-0.056) 0.072 ng/mL (0.000-0.056) White Blood Count 5.7 K/UL (4.8-10.8) Red Blood Count 4.28 M/UL (4.70-6.10) L Hemoglobin 12.9 G/DL (14.2-18.0) L Hematocrit 38.6 % (42.0-52.0) L Mean Corpuscular Volume 90 FL (80-99) Mean Corpuscular Hemoglobin 30.2 PG (27.0-31.0) Mean Corpuscular Hemoglobin Concent 33.4 G/DL (32.0-36.0) Red Cell Distribution Width 13.4 % (11.6-14.8) Platelet Count 144 K/UL (150-450) L Mean Platelet Volume 6.9 FL (6.5-10.1) Neutrophils (%) (Auto) 60.9 % (45.0-75.0) Lymphocytes (%) (Auto) 23.9 % (20.0-45.0) Monocytes (%) (Auto) 13.2 % (1.0-10.0) H Eosinophils (%) (Auto) 1.0 % (0.0-3.0) Basophils (%) (Auto) 1.0 % (0.0-2.0) Sodium Level 140 MMOL/L (136-145) Potassium Level 3.9 MMOL/L (3.5-5.1) Chloride Level 106 MMOL/L (98-107) Carbon Dioxide Level 26 MMOL/L (21-32) Anion Gap 8 mmol/L (5-15) Blood Urea Nitrogen 21 mg/dL (7-18) H Creatinine 1.1 MG/DL (0.55-1.30) Estimat Glomerular Filtration Rate > 60 mL/min (>60) Glucose Level 103 MG/DL (74-106) Calcium Level 8.8 MG/DL (8.5-10.1) Phosphorus Level 3.5 MG/DL (2.5-4.9) Magnesium Level 2.0 MG/DL (1.8-2.4) Levetiracetam (Keppra) Level Pending Neurologic Exam Objective REVIEW OF SYSTEMS: Negative other than what was mentioned in the history of present illness. Physical Exam VSS General: Pt is awake and oriented x4 he is getting a echo at bedside with tech Neuro: Awake and Oriented has insight to hospitalization Comprehension is intact Language parameters intact. Cranial nerve II- XII tested are tested PERRLA, no nystagmus No facial droop Tongue is midline Hearing intact. Motor: No involuntary movement Bilat upper extremity strength is 3/5, bilat lower extremity strength 3/5 Gait not tested, Sensation intact to light touch bilat. Impression/Recommendations Diagnostic Impression LAB DATA: White count 7, hemoglobin 13.8, hematocrit 42.7, platelet m148. Sodium 135, potassium 4.0, BUN of 14, creatinine 1.1, glucose of 102. IMAGING:CT Head: 1. Interval mildly increased subtle hypodensity in the right basal ganglia region could reflect changes of chronic microvascular ischemia, although early ischemia could potentially have this appearance. 2. Correlate with presentation and consider additional imaging if felt to alter clinical management. 3. Otherwise no acute intracranial abnormality. 4. Otherwise unremarkable study. ASSESSMENT AND REC': 1. Seizure Disorder --> pt is only on Keppra 500mg po q HS at his nursing facility upon medication reconciliation from his chart --> he states he was on Depakote in the past --> We have increased Keppra frequency to BID at this time. 2. Elevated troponin 3. Possible congestive heart failure. --> per cards 4. Hypertension. Thank you for allowing us to participate in patient's care, plan of care was reviewed with Dr. Jevon Hannah who agrees. Ivana Bruner NP Oct 26, 2020 13:16
--- NOTE | 2020-10-26 14:45 | General Progress Note ---
Subjective Date patient seen: Oct 26, 2020 Time patient seen: 14:44 Constitutional: Denies: chills, fever Cardiovascular: Denies: chest pain Respiratory: Denies: cough Gastrointestinal/Abdominal: Denies: abdominal pain Allergies: Coded Allergies: No Known Allergies (Unverified , 08/17/20) Subjective Follow up for breakthrough seizure Patient doing well, no further seizure activity. Worked with PT today Objective Last 24 Hour Vital Signs Date Time Temp Pulse Resp B/P (MAP) Pulse Ox O2 Delivery O2 Flow Rate FiO2 10/26/20 12:32 62 18 146/84 95 10/26/20 12:00 63 10/26/20 12:00 97.3 65 18 146/84 (104) 95 10/26/20 09:00 Room Air 10/26/20 08:57 66 137/72 10/26/20 08:56 137/72 10/26/20 08:56 66 137/72 10/26/20 08:00 65 10/26/20 08:00 99.1 66 18 137/72 (93) 99 10/26/20 06:02 63 20 148/74 97 10/26/20 04:00 64 10/26/20 04:00 98.2 63 20 148/74 (98) 97 10/26/20 00:14 65 24 128/81 98 10/26/20 00:00 61 10/26/20 00:00 98.1 64 20 128/81 (97) 97 10/25/20 23:00 Room Air 10/25/20 21:08 65 120/56 10/25/20 20:00 97.4 65 20 120/56 (77) 98 10/25/20 20:00 67 10/25/20 17:57 62 20 131/64 97 10/25/20 17:27 63 20 131/64 98 10/25/20 17:26 131/64 10/25/20 16:00 99.1 63 20 131/64 (86) 97 10/25/20 16:00 60 Intake and Output 10/25/20 10/26/20 19:00 07:00 Intake Total 750 ml 480 ml Output Total 900 ml Balance 750 ml -420 ml Intake Oral 750 ml 480 ml Output Urine Total 900 ml # Voids 2 3 # Bowel Movements 2 Laboratory Tests 10/25/20 18:10: Troponin I 0.127H 2/26/21 06:22: Troponin I 0.072H, White Blood Count 5.7, Red Blood Count 4.28L, Hemoglobin 12 .9L, Hematocrit 38.6L, Mean Corpuscular Volume 90, Mean Corpuscular Hemoglobin 30.2, Mean Corpuscular Hemoglobin Concent 33.4, Red Cell Distribution Width 13.4, Platelet Count 144L, Mean Platelet Volume 6.9, Neutrophils (%) (Auto) 60.9, Lymphocytes (%) (Auto) 23.9, Monocytes (%) (Auto) 13.2H, Eosinophils (%) ( Auto) 1.0, Basophils (%) (Auto) 1.0, Sodium Level 140, Potassium Level 3.9, Chloride Level 106, Carbon Dioxide Level 26, Anion Gap 8, Blood Urea Nitrogen 21H, Creatinine 1.1, Estimat Glomerular Filtration Rate > 60, Glucose Level 103, Calcium Level 8.8, Phosphorus Level 3.5, Magnesium Level 2.0, Levetiracetam (Keppra) Level [Pending] Height (Feet): 6 Height (Inches): 1.00 Weight (Pounds): 279 General Appearance: no apparent distress, alert Neck: normal alignment, supple Cardiovascular: normal rate, regular rhythm Respiratory/Chest: lungs clear, normal breath sounds, no respiratory distress Assessment/Plan Assessment/Plan: 60 year old man with schizophrenia, epilepsy, HTN, history of CVA with left sided residual hemiparesis, who presented with breakthrough seizure #Breakthrough seizure #Epilepsy #NSTEMI - likely type 2, demand ischemia in the setting of multiple seizures #history of CVA with left sided residual weakness #Hypertensive urgency #Schizophrenia -cont telemetry -Cardiac monitoring -Serial troponin -cont ASA, Statin, metoprolol, amlodipine and hydralazine -continue Keppra, increased to bid -Neurology eval -Cardiology eval I spent 38 minutes on this patient's case, and 20 minutes was dedicated to counseling and/or care coordination with RN, customer relations consultant Keenan Lu MD Oct 26, 2020 14:45
--- NOTE | 2020-10-26 15:14 | Cardiac Electrophysiology PN ---
Assessment/Plan Assessment/Plan 1. Elevated troponin. The patient currently does not have any chest pain. EKG does not show acute ischemic changes. Troponin 0.7 to 1.0 In the meantime continue aspirin, beta-filiberto, and statin. 2. Possible congestive heart failure. EF 60%. 3. Accelerated hypertension. On hydralazine 50 mg b.i.d. ,metoprolol 25 mg b.i.d. Norvasc 10 mg daily and p.r.n. clonidine 4. Uncontrolled seizures. Subjective Subjective In SR no CP or SOB Objective Last 24 Hour Vital Signs Date Time Temp Pulse Resp B/P (MAP) Pulse Ox O2 Delivery O2 Flow Rate FiO2 10/26/20 12:32 62 18 146/84 95 10/26/20 12:00 63 10/26/20 12:00 97.3 65 18 146/84 (104) 95 10/26/20 09:00 Room Air 10/26/20 08:57 66 137/72 10/26/20 08:56 137/72 10/26/20 08:56 66 137/72 10/26/20 08:00 65 10/26/20 08:00 99.1 66 18 137/72 (93) 99 10/26/20 06:02 63 20 148/74 97 10/26/20 04:00 64 10/26/20 04:00 98.2 63 20 148/74 (98) 97 10/26/20 00:14 65 24 128/81 98 10/26/20 00:00 61 10/26/20 00:00 98.1 64 20 128/81 (97) 97 10/25/20 23:00 Room Air 10/25/20 21:08 65 120/56 10/25/20 20:00 97.4 65 20 120/56 (77) 98 10/25/20 20:00 67 10/25/20 17:57 62 20 131/64 97 10/25/20 17:27 63 20 131/64 98 10/25/20 17:26 131/64 10/25/20 16:00 99.1 63 20 131/64 (86) 97 10/25/20 16:00 60 l Intake and Output 10/25/20 10/26/20 19:00 07:00 Intake Total 750 ml 480 ml Output Total 900 ml Balance 750 ml -420 ml Intake Oral 750 ml 480 ml Output Urine Total 900 ml # Voids 2 3 # Bowel Movements 2 Laboratory Tests Test 10/25/20 18:10 10/26/20 06:22 Troponin I 0.127 ng/mL (0.000-0.056) 0.072 ng/mL (0.000-0.056) White Blood Count 5.7 K/UL (4.8-10.8) Red Blood Count 4.28 M/UL (4.70-6.10) L Hemoglobin 12.9 G/DL (14.2-18.0) L Hematocrit 38.6 % (42.0-52.0) L Mean Corpuscular Volume 90 FL (80-99) Mean Corpuscular Hemoglobin 30.2 PG (27.0-31.0) Mean Corpuscular Hemoglobin Concent 33.4 G/DL (32.0-36.0) Red Cell Distribution Width 13.4 % (11.6-14.8) Platelet Count 144 K/UL (150-450) L Mean Platelet Volume 6.9 FL (6.5-10.1) Neutrophils (%) (Auto) 60.9 % (45.0-75.0) Lymphocytes (%) (Auto) 23.9 % (20.0-45.0) Monocytes (%) (Auto) 13.2 % (1.0-10.0) H Eosinophils (%) (Auto) 1.0 % (0.0-3.0) Basophils (%) (Auto) 1.0 % (0.0-2.0) Sodium Level 140 MMOL/L (136-145) Potassium Level 3.9 MMOL/L (3.5-5.1) Chloride Level 106 MMOL/L (98-107) Carbon Dioxide Level 26 MMOL/L (21-32) Anion Gap 8 mmol/L (5-15) Blood Urea Nitrogen 21 mg/dL (7-18) H Creatinine 1.1 MG/DL (0.55-1.30) Estimat Glomerular Filtration Rate > 60 mL/min (>60) Glucose Level 103 MG/DL (74-106) Calcium Level 8.8 MG/DL (8.5-10.1) Phosphorus Level 3.5 MG/DL (2.5-4.9) Magnesium Level 2.0 MG/DL (1.8-2.4) Levetiracetam (Keppra) Level Pending Objective HEAD AND NECK: no JVD. LUNGS: Clear. CARDIOVASCULAR: Regular S1 and S2 with no gallop or murmur. ABDOMEN: Soft. EXTREMITIES: No pitting edema. Hakeem Henriquez MD Oct 26, 2020 15:14
[2020-10-26 16:00] VITALS: BP 142/73
--- NOTE | 2020-10-26 19:30 | NUR ---
NURSE NOTES: Patient received from REVA Shelton. Patient is sleeping but easily arousable. Patient has no complaints as of the moment. Patient is on room air with no signs of acute respiratory distress noted. Patient has a urinal in bed, asks for assistance. Patient has an IV on his left hand, 22 gauge saline locked. Bed is in the lowest position and locked. Call light within reach. Will continue to monitor.
[2020-10-26 20:00] VITALS: BP 136/64
[2020-10-26] MEDS: Atorvastatin 20mg tab ORAL SCH (21:26)
[2020-10-26] MEDS: TraZODone 50mg tab ORAL SCH (21:26)
[2020-10-26] MEDS: Sennosides 8.6mg tab ORAL SCH (21:28)
[2020-10-27] VITALS: BP 139/79
[2020-10-27] MEDS: LORazepam Inj 2mg/ml 1ml IVP SCH ×4 (00:14→17:46)
[2020-10-27 04:00] VITALS: BP 154/74
--- NOTE | 2020-10-27 07:29 | NUR ---
NURSE HAND-OFF REPORT: Important Events on Shift:[] Patient Status: [Stable] Diet: [Regular diet] Pending Orders: [] Pending Results/Labs:[] Pending MD notification:[] Latest Vital Signs: Temperature 98.1 , Pulse 60 , B/P 154 /74 , Respiratory Rate 20 , O2 SAT 100 , Room Air, O2 Flow Rate . Vital Sign Comment: [] EKG Rhythm: SB, 1st AVB, BBB, PVC Rhythm change?: N MD Notified?: N - MD Response: Latest Chris Fall Score: 70 Fall Risk: High Risk Safety Measures: Call light Within Reach, Bed Alarm Zone 1, Side Rails Side Rails x3, Bed position Low and Locked. Fall Precautions: Yellow Socks Report given to [REVA Shelton].
[2020-10-27 07:47] LABS: BASOPHILS % (AUTO) 0.7 % (0.0-2.0); EOSINOPHILS % (AUTO) 1.3 % (0.0-3.0); HEMATOCRIT 40.6 % (42.0-52.0); HEMOGLOBIN 13.4 G/DL (14.2-18.0); LYMPHOCYTES % (AUTO) 28.7 % (20.0-45.0); MEAN CORPUSCULAR VOLUME 91 FL (80-99); MONOCYTES % (AUTO) 11.4 % (1.0-10.0); NEUTROPHILS % (AUTO) 57.9 % (45.0-75.0); PLATELET COUNT 141 K/UL (150-450); RED BLOOD COUNT 4.46 M/UL (4.70-6.10); RED CELL DISTRIBUTION WIDTH 13.6 % (11.6-14.8); WHITE BLOOD COUNT 4.9 K/UL (4.8-10.8)
[2020-10-27] MEDS ORDERED: VITAMIN B-1100 MG ORAL (07:50)
[2020-10-27] MEDS ORDERED: ATIVAN1 MG ORAL (07:50)
[2020-10-27] MEDS ORDERED: HYDROCODON-ACE1 EA18 PO (07:50)
[2020-10-27 08:00] VITALS: BP 135/76
[2020-10-27 08:01] LABS: ANION GAP 9 mmol/L (5-15); BLOOD UREA NITROGEN 20 mg/dL (7-18); CALCIUM 9.2 MG/DL (8.5-10.1); CARBON DIOXIDE 25 MMOL/L (21-32); CHLORIDE 104 MMOL/L (98-107); CREATININE 1.2 MG/DL (0.55-1.30); PHOSPHORUS 3.4 MG/DL (2.5-4.9); POTASSIUM 3.6 MMOL/L (3.5-5.1); SODIUM 138 MMOL/L (136-145)
[2020-10-27] MEDS: HydrALAZINE 50mg tab ORAL SCH ×2 (08:58→17:45)
[2020-10-27] MEDS: Gabapentin 300 MG/6 ML Soln ORAL SCH ×3 (08:58→17:45)
[2020-10-27] MEDS: Docusate 100mg cap ORAL SCH (08:59)
[2020-10-27] MEDS: Ascorbic Acid 500mg tab ORAL SCH (08:59)
[2020-10-27] MEDS: Aspirin Baby 81mg ORAL SCH (08:59)
[2020-10-27] MEDS: Vitamin D 1000 units Tab ORAL SCH (08:59)
--- NOTE | 2020-10-27 09:12 | Surgery Progress Note ---
Surgery Progress Note Subjective Additional Comments sleeping respiratory stable no n/v comfortable edema improved Objective Last 24 Hour Vital Signs Date Time Temp Pulse Resp B/P (MAP) Pulse Ox O2 Delivery O2 Flow Rate FiO2 10/27/20 08:59 73 135/76 10/27/20 08:59 73 135/76 10/27/20 08:58 135/76 10/27/20 08:00 98.6 73 18 135/76 (95) 97 10/27/20 06:00 60 20 154/74 100 10/27/20 04:00 98.1 57 20 154/74 (100) 97 10/27/20 04:00 55 10/27/20 00:14 61 20 139/79 97 10/27/20 00:00 59 10/27/20 00:00 97.9 59 20 139/79 (99) 97 10/26/20 21:29 65 136/64 10/26/20 21:00 Room Air 10/26/20 20:00 98.4 65 20 136/64 (88) 96 10/26/20 20:00 61 10/26/20 18:16 64 18 142/73 96 10/26/20 17:46 64 18 142/73 96 10/26/20 17:45 142/73 10/26/20 16:00 60 10/26/20 16:00 99.1 64 18 142/73 (96) 96 10/26/20 12:32 62 18 146/84 95 10/26/20 12:00 63 10/26/20 12:00 97.3 65 18 146/84 (104) 95 I&O Intake and Output 10/26/20 10/27/20 19:00 07:00 Intake Total 500 ml Output Total 700 ml 950 ml Balance -200 ml -950 ml Intake Oral 500 ml Output Urine Total 700 ml 950 ml # Voids 2 Cardiovascular: RSR Respiratory: clear Abdomen: soft, flat, non-tender, present bowel sounds, non-distended Extremities: edema, no tenderness, no cyanosis Laboratory Tests Test 10/27/20 07:20 White Blood Count 4.9 K/UL (4.8-10.8) Red Blood Count 4.46 M/UL (4.70-6.10) L Hemoglobin 13.4 G/DL (14.2-18.0) L Hematocrit 40.6 % (42.0-52.0) L Mean Corpuscular Volume 91 FL (80-99) Mean Corpuscular Hemoglobin 29.9 PG (27.0-31.0) Mean Corpuscular Hemoglobin Concent 32.9 G/DL (32.0-36.0) Red Cell Distribution Width 13.6 % (11.6-14.8) Platelet Count 141 K/UL (150-450) L Mean Platelet Volume 6.9 FL (6.5-10.1) Neutrophils (%) (Auto) 57.9 % (45.0-75.0) Lymphocytes (%) (Auto) 28.7 % (20.0-45.0) Monocytes (%) (Auto) 11.4 % (1.0-10.0) H Eosinophils (%) (Auto) 1.3 % (0.0-3.0) Basophils (%) (Auto) 0.7 % (0.0-2.0) Sodium Level 138 MMOL/L (136-145) Potassium Level 3.6 MMOL/L (3.5-5.1) Chloride Level 104 MMOL/L (98-107) Carbon Dioxide Level 25 MMOL/L (21-32) Anion Gap 9 mmol/L (5-15) Blood Urea Nitrogen 20 mg/dL (7-18) H Creatinine 1.2 MG/DL (0.55-1.30) Estimat Glomerular Filtration Rate > 60 mL/min (>60) Glucose Level 135 MG/DL (74-106) H Calcium Level 9.2 MG/DL (8.5-10.1) Phosphorus Level 3.4 MG/DL (2.5-4.9) Magnesium Level 1.7 MG/DL (1.8-2.4) L Plan Problems: (1) Status post CVA (2) Seizure disorder (3) Elevated troponin (4) Altered mental status (5) Head injury (6) Contusion of left hip (7) Contusion of right knee (8) Lower extremity edema Assessment & Plan: 60-year-old with male multimedical comorbidities presented with seizures identified lower extremity swelling potential cellulitis surgery called to evaluate long history of bilateral noted no erythema no tenderness unlikely DVT cardiac issues identified cardiology but appreciated on Lasix continue Lasix keep legs elevated while in bed okay to ambulate okay for diet remainder of exam fairly benign no acute trauma from seizure or falls. Thank you will follow with recommendations David Temple Oct 27, 2020 09:12
--- NOTE | 2020-10-27 10:45 | NUR ---
CASE MANAGEMENT:REVIEW 10/27/20 SI:EPILEPSY. NSTEMI 98.6 73 18 135/76 8-97% ON RA H/H-13.4/40.6 BUN+20 MAG-1.7 IS: KEPPRA PO Q12 ASA PO QD TRAZODONE PO QHS HYDRALAZINE PO BID LOPRESSOR PO Q12 NEURONTIN PO TID NORVASC PO QD IV ATIVAN Q6HRS : TELEMETRY STATUS DCP: FROM [facility] PLAN: PT EVAL ~ 75FT
--- NOTE | 2020-10-27 11:13 | Pulmonology Progress Note ---
Subjective ROS Limited/Unobtainable: No Interval Events: No seizure since admission Constitutional: Reports: no symptoms HEENT: Repors: no symptoms Respiratory: Reports: no symptoms Cardiovascular: Reports: no symptoms Gastrointestinal/Abdominal: Reports: no symptoms Genitourinary: Reports: no symptoms Allergies: Coded Allergies: No Known Allergies (Unverified , 08/17/20) Objective Last 24 Hour Vital Signs Date Time Temp Pulse Resp B/P (MAP) Pulse Ox O2 Delivery O2 Flow Rate FiO2 10/27/20 09:00 Room Air 10/27/20 08:59 73 135/76 10/27/20 08:59 73 135/76 10/27/20 08:58 135/76 10/27/20 08:00 98.6 73 18 135/76 (95) 97 10/27/20 08:00 74 10/27/20 06:00 60 20 154/74 100 10/27/20 04:00 98.1 57 20 154/74 (100) 97 10/27/20 04:00 55 10/27/20 00:14 61 20 139/79 97 10/27/20 00:00 59 10/27/20 00:00 97.9 59 20 139/79 (99) 97 10/26/20 21:29 65 136/64 10/26/20 21:00 Room Air 10/26/20 20:00 98.4 65 20 136/64 (88) 96 10/26/20 20:00 61 10/26/20 18:16 64 18 142/73 96 10/26/20 17:46 64 18 142/73 96 10/26/20 17:45 142/73 10/26/20 16:00 60 10/26/20 16:00 99.1 64 18 142/73 (96) 96 10/26/20 12:32 62 18 146/84 95 10/26/20 12:00 63 10/26/20 12:00 97.3 65 18 146/84 (104) 95 Intake and Output 10/26/20 10/27/20 19:00 07:00 Intake Total 500 ml Output Total 700 ml 950 ml Balance -200 ml -950 ml Intake Oral 500 ml Output Urine Total 700 ml 950 ml # Voids 2 General Appearance: no acute distress HEENT: normocephalic Respiratory: lungs clear Cardiovascular: normal rate Abdomen: soft, non tender Extremities: other - b/l leg edema Microbiology Date/Time Source Procedure Growth Status 10/25/20 10:00 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 Complete 10/25/20 10:00 Nasal Nares MRSA Culture - Final NO METHICILLIN RESISTANT STAPH AUREUS... Complete Laboratory Tests 10/27/20 07:20: White Blood Count 4.9, Red Blood Count 4.46L, Hemoglobin 13.4L, Hematocrit 40.6L , Mean Corpuscular Volume 91, Mean Corpuscular Hemoglobin 29.9, Mean Corpuscular Hemoglobin Concent 32.9, Red Cell Distribution Width 13.6, Platelet Count 141L, Mean Platelet Volume 6.9, Neutrophils (%) (Auto) 57.9, Lymphocytes (%) (Auto) 28.7, Monocytes (%) (Auto) 11.4H, Eosinophils (%) (Auto) 1.3, Basophils (%) (Auto) 0.7, Sodium Level 138, Potassium Level 3.6, Chloride Level 104, Carbon Dioxide Level 25, Anion Gap 9, Blood Urea Nitrogen 20H, Creatinine 1.2, Estimat Glomerular Filtration Rate > 60, Glucose Level 135H, Calcium Level 9.2, Phosphorus Level 3.4, Magnesium Level 1.7L Current Medications Medications (Trade) Dose Ordered Sig/Nicole Route PRN Reason Start Time Stop Time Status Last Admin Dose Admin Acetaminophen (Tylenol) 650 mg Q6H PRN ORAL FEVER 10/25/20 00:45 11/24/20 00:44 Acetaminophen (Tylenol) 650 mg Q6H PRN ORAL For Headache 10/25/20 00:45 11/24/20 00:44 Acetaminophen/ Hydrocodone Bitart ([place] 10/325) 1 tab Q4H PRN ORAL PAIN 4-10 10/25/20 06:30 11/01/20 06:29 10/26/20 08:57 Amlodipine Besylate (Norvasc) 10 mg DAILY ORAL 10/25/20 09:00 11/24/20 08:59 10/27/20 08:59 Ascorbic Acid (Vitamin C) 500 mg DAILY ORAL 10/25/20 09:00 11/24/20 08:59 10/27/20 08:59 Aspirin (ASA) 81 mg DAILY ORAL 10/26/20 09:00 12/10/20 08:59 10/27/20 08:59 Atorvastatin Calcium (Lipitor) 40 mg BEDTIME ORAL 10/25/20 21:00 01/23/21 20:59 10/26/20 21:26 Clonidine HCl (Catapres tab) 0.2 mg Q4H PRN ORAL For High Blood Pressure 10/25/20 11:00 01/23/21 10:59 Docusate Sodium (Colace) 100 mg DAILY ORAL 10/25/20 09:00 11/24/20 08:59 10/27/20 08:59 Folic Acid (Folate) 1 mg DAILY ORAL 10/25/20 09:00 11/24/20 08:59 10/27/20 08:59 Gabapentin (Neurontin) 300 mg THREE TIMES A DAY ORAL 10/25/20 09:00 11/24/20 08:59 10/27/20 08:58 Hydralazine HCl (Apresoline) 50 mg BID ORAL 10/25/20 18:00 01/23/21 17:59 10/27/20 08:58 Ibuprofen (Motrin) 600 mg Q6H PRN ORAL Mild Pain (Pain Scale 1-3) 10/25/20 01:30 11/24/20 01:29 Levetiracetam (Keppra) 500 mg Q12HR ORAL 10/26/20 21:00 12/10/20 20:59 10/27/20 08:59 Lorazepam (Ativan 2mg/ml 1ml) 1 mg Q6HR IVP 10/25/20 06:00 11/01/20 05:59 10/27/20 06:00 Metoprolol Tartrate (Lopressor) 25 mg Q12HR ORAL 10/25/20 09:00 01/23/21 08:59 10/27/20 08:59 Multivitamins (Multivitamins) 1 tab DAILY ORAL 10/25/20 09:00 11/24/20 08:59 10/27/20 08:59 Ondansetron HCl (Zofran) 4 mg Q6H PRN ORAL Nausea & Vomiting 10/25/20 01:30 11/24/20 01:29 Risperidone (RisperDAL) 2 mg HSPRN PRN ORAL bedtime agitation 10/25/20 21:00 12/09/20 20:59 Sennosides (Senokot) 17.2 mg QHS ORAL 10/25/20 21:00 11/24/20 20:59 10/26/20 21:28 Trazodone HCl (Desyrel) 50 mg BEDTIME ORAL 10/25/20 21:00 11/24/20 20:59 10/26/20 21:26 Vitamin D (Vitamin D) 5,000 unit DAILY ORAL 10/25/20 09:00 11/24/20 08:59 10/27/20 08:59 Assessment/Plan Assessment/Plan 1. Seizure -seen by neuro - Keppra dosage adjusted 2. Risk of aspiration/pneumonia, due to #1 -Patient is afebrile -Monitor for fever, and seizure - f/u CXR if indicated 3. Smoker -Patient educated on smoking cessation 4. Elevated troponin -Serial troponin; trops downtrending - seen by cardio 5. Leg edema - V/D US of legs negative -> on SCD for DVT ppx The care for this patient was discussed with my supervising physician. Time spent for this case was approximately 31 minutes. Kevin Anderson Oct 27, 2020 11:13
[2020-10-27 12:00] VITALS: BP 148/83
--- NOTE | 2020-10-27 12:01 | General Progress Note ---
Subjective Date patient seen: Oct 27, 2020 Time patient seen: 07:00 Constitutional: Denies: chills, fever Cardiovascular: Denies: chest pain Respiratory: Denies: cough Gastrointestinal/Abdominal: Denies: abdomen distended Allergies: Coded Allergies: No Known Allergies (Unverified , 08/17/20) Subjective Follow up for breakthrough seizure Patient doing well, no further seizure activity. No new complaints Objective Last 24 Hour Vital Signs Date Time Temp Pulse Resp B/P (MAP) Pulse Ox O2 Delivery O2 Flow Rate FiO2 10/27/20 09:00 Room Air 10/27/20 08:59 73 135/76 10/27/20 08:59 73 135/76 10/27/20 08:58 135/76 10/27/20 08:00 98.6 73 18 135/76 (95) 97 10/27/20 08:00 74 10/27/20 06:00 60 20 154/74 100 10/27/20 04:00 98.1 57 20 154/74 (100) 97 10/27/20 04:00 55 10/27/20 00:14 61 20 139/79 97 10/27/20 00:00 59 10/27/20 00:00 97.9 59 20 139/79 (99) 97 10/26/20 21:29 65 136/64 10/26/20 21:00 Room Air 10/26/20 20:00 98.4 65 20 136/64 (88) 96 10/26/20 20:00 61 10/26/20 18:16 64 18 142/73 96 10/26/20 17:46 64 18 142/73 96 10/26/20 17:45 142/73 10/26/20 16:00 60 10/26/20 16:00 99.1 64 18 142/73 (96) 96 10/26/20 12:32 62 18 146/84 95 Intake and Output 10/26/20 10/27/20 19:00 07:00 Intake Total 500 ml Output Total 700 ml 950 ml Balance -200 ml -950 ml Intake Oral 500 ml Output Urine Total 700 ml 950 ml # Voids 2 Laboratory Tests 10/27/20 07:20: White Blood Count 4.9, Red Blood Count 4.46L, Hemoglobin 13.4L, Hematocrit 40.6L , Mean Corpuscular Volume 91, Mean Corpuscular Hemoglobin 29.9, Mean Corpuscular Hemoglobin Concent 32.9, Red Cell Distribution Width 13.6, Platelet Count 141L, Mean Platelet Volume 6.9, Neutrophils (%) (Auto) 57.9, Lymphocytes (%) (Auto) 28.7, Monocytes (%) (Auto) 11.4H, Eosinophils (%) (Auto) 1.3, Basophils (%) (Auto) 0.7, Sodium Level 138, Potassium Level 3.6, Chloride Level 104, Carbon Dioxide Level 25, Anion Gap 9, Blood Urea Nitrogen 20H, Creatinine 1.2, Estimat Glomerular Filtration Rate > 60, Glucose Level 135H, Calcium Level 9.2, Phosphorus Level 3.4, Magnesium Level 1.7L Height (Feet): 6 Height (Inches): 1.00 Weight (Pounds): 279 General Appearance: no apparent distress, alert Neck: normal alignment, supple Cardiovascular: normal rate, regular rhythm Abdomen: non tender, soft Assessment/Plan Assessment/Plan: 60 year old man with schizophrenia, epilepsy, HTN, history of CVA with left sided residual hemiparesis, who presented with breakthrough seizure #Breakthrough seizure #Epilepsy #NSTEMI - likely type 2, demand ischemia in the setting of multiple seizures #history of CVA with left sided residual weakness #Hypertensive urgency #Schizophrenia -cont telemetry -Cardiac monitoring -Serial troponin -cont ASA, Statin, metoprolol, amlodipine and hydralazine -continue Keppra, increased to bid -Neurology eval -Cardiology eval I spent 35 minutes on this patient's case, and 20 minutes was dedicated to counseling and/or care coordination with RN, analysis consultant Keenan Lu MD Oct 27, 2020 12:01
[2020-10-27] MEDS: HYDROcodone/Acetamin 10/325 tab ORAL PRN ×3 (12:21→22:05)
--- NOTE | 2020-10-27 15:43 | Cardiac Electrophysiology PN ---
Assessment/Plan Assessment/Plan 1. Elevated troponin. The patient currently does not have any chest pain. EKG does not show acute ischemic changes. Troponin 0.7 to 1.0 In the meantime continue aspirin, beta-filiberto, and statin. 2. Possible congestive heart failure. EF 60%. 3. Accelerated hypertension. On hydralazine 50 mg b.i.d. ,metoprolol 25 mg b.i.d. Norvasc 10 mg daily and p.r.n. clonidine 4. Uncontrolled seizures. 5. Nonsustained VT. No RI. Nl EF. Already on Metoprolol DW RN Subjective Subjective In SR no CP or SOB. Had short run of nonsustained VT 10 beats at 12.42 PM today Objective Last 24 Hour Vital Signs Date Time Temp Pulse Resp B/P (MAP) Pulse Ox O2 Delivery O2 Flow Rate FiO2 10/27/20 12:45 64 18 148/83 97 10/27/20 12:15 64 18 148/83 97 10/27/20 12:00 99.0 64 18 148/83 (104) 97 10/27/20 12:00 60 10/27/20 09:00 Room Air 10/27/20 08:59 73 135/76 10/27/20 08:59 73 135/76 10/27/20 08:58 135/76 10/27/20 08:00 98.6 73 18 135/76 (95) 97 10/27/20 08:00 74 10/27/20 06:00 60 20 154/74 100 10/27/20 04:00 98.1 57 20 154/74 (100) 97 10/27/20 04:00 55 10/27/20 00:14 61 20 139/79 97 10/27/20 00:00 59 10/27/20 00:00 97.9 59 20 139/79 (99) 97 10/26/20 21:29 65 136/64 10/26/20 21:00 Room Air 10/26/20 20:00 98.4 65 20 136/64 (88) 96 10/26/20 20:00 61 10/26/20 18:16 64 18 142/73 96 10/26/20 17:46 64 18 142/73 96 10/26/20 17:45 142/73 10/26/20 16:00 60 10/26/20 16:00 99.1 64 18 142/73 (96) 96 Intake and Output 10/26/20 10/27/20 19:00 07:00 Intake Total 500 ml Output Total 700 ml 950 ml Balance -200 ml -950 ml Intake Oral 500 ml Output Urine Total 700 ml 950 ml # Voids 2 Laboratory Tests Test 10/27/20 07:20 White Blood Count 4.9 K/UL (4.8-10.8) Red Blood Count 4.46 M/UL (4.70-6.10) L Hemoglobin 13.4 G/DL (14.2-18.0) L Hematocrit 40.6 % (42.0-52.0) L Mean Corpuscular Volume 91 FL (80-99) Mean Corpuscular Hemoglobin 29.9 PG (27.0-31.0) Mean Corpuscular Hemoglobin Concent 32.9 G/DL (32.0-36.0) Red Cell Distribution Width 13.6 % (11.6-14.8) Platelet Count 141 K/UL (150-450) L Mean Platelet Volume 6.9 FL (6.5-10.1) Neutrophils (%) (Auto) 57.9 % (45.0-75.0) Lymphocytes (%) (Auto) 28.7 % (20.0-45.0) Monocytes (%) (Auto) 11.4 % (1.0-10.0) H Eosinophils (%) (Auto) 1.3 % (0.0-3.0) Basophils (%) (Auto) 0.7 % (0.0-2.0) Sodium Level 138 MMOL/L (136-145) Potassium Level 3.6 MMOL/L (3.5-5.1) Chloride Level 104 MMOL/L (98-107) Carbon Dioxide Level 25 MMOL/L (21-32) Anion Gap 9 mmol/L (5-15) Blood Urea Nitrogen 20 mg/dL (7-18) H Creatinine 1.2 MG/DL (0.55-1.30) Estimat Glomerular Filtration Rate > 60 mL/min (>60) Glucose Level 135 MG/DL (74-106) H Calcium Level 9.2 MG/DL (8.5-10.1) Phosphorus Level 3.4 MG/DL (2.5-4.9) Magnesium Level 1.7 MG/DL (1.8-2.4) L Microbiology Date/Time Source Procedure Growth Status 10/25/20 10:00 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 Complete 10/25/20 10:00 Nasal Nares MRSA Culture - Final NO METHICILLIN RESISTANT STAPH AUREUS... Complete Objective HEAD AND NECK: no JVD. LUNGS: Clear. CARDIOVASCULAR: Regular S1 and S2 with no gallop or murmur. ABDOMEN: Soft. EXTREMITIES: No pitting edema. Hakeem Henriquez MD Oct 27, 2020 15:42
[2020-10-27 16:00] VITALS: BP 137/74
--- NOTE | 2020-10-27 18:55 | Nephrology Progress Note ---
Assessment/Plan Plan #Breakthrough seizure #Epilepsy #NSTEMI - likely type 2, demand ischemia in the setting of multiple seizures #history of CVA with left sided residual weakness #Hypertensive urgency #Schizophrenia -admit to telemetry -Cardiac monitoring -Serial troponin -cont ASA, Statin, metoprolol, amlodipine and hydralazine -continue Keppra - possible increase to bid -Neurology eval -Cardiology eval Subjective ROS Limited/Unobtainable: No Constitutional: Reports: weakness Subjective no acute events no CP NO SOB Objective Objective Last 24 Hour Vital Signs Date Time Temp Pulse Resp B/P (MAP) Pulse Ox O2 Delivery O2 Flow Rate FiO2 10/27/20 18:16 63 18 137/74 97 10/27/20 17:46 63 18 137/74 97 10/27/20 17:45 137/74 10/27/20 16:00 63 10/27/20 16:00 98.1 63 18 137/74 (95) 97 10/27/20 12:45 64 18 148/83 97 10/27/20 12:15 64 18 148/83 97 10/27/20 12:00 99.0 64 18 148/83 (104) 97 10/27/20 12:00 60 10/27/20 09:00 Room Air 10/27/20 08:59 73 135/76 10/27/20 08:59 73 135/76 10/27/20 08:58 135/76 10/27/20 08:00 98.6 73 18 135/76 (95) 97 10/27/20 08:00 74 10/27/20 06:00 60 20 154/74 100 10/27/20 04:00 98.1 57 20 154/74 (100) 97 10/27/20 04:00 55 10/27/20 00:14 61 20 139/79 97 10/27/20 00:00 59 10/27/20 00:00 97.9 59 20 139/79 (99) 97 10/26/20 21:29 65 136/64 10/26/20 21:00 Room Air 10/26/20 20:00 98.4 65 20 136/64 (88) 96 10/26/20 20:00 61 Intake and Output 10/26/20 10/27/20 19:00 07:00 Intake Total 500 ml Output Total 700 ml 950 ml Balance -200 ml -950 ml Intake Oral 500 ml Output Urine Total 700 ml 950 ml # Voids 2 Laboratory Tests 10/27/20 07:20: White Blood Count 4.9, Red Blood Count 4.46L, Hemoglobin 13.4L, Hematocrit 40.6L , Mean Corpuscular Volume 91, Mean Corpuscular Hemoglobin 29.9, Mean Corpuscular Hemoglobin Concent 32.9, Red Cell Distribution Width 13.6, Platelet Count 141L, Mean Platelet Volume 6.9, Neutrophils (%) (Auto) 57.9, Lymphocytes (%) (Auto) 28.7, Monocytes (%) (Auto) 11.4H, Eosinophils (%) (Auto) 1.3, Basophils (%) (Auto) 0.7, Sodium Level 138, Potassium Level 3.6, Chloride Level 104, Carbon Dioxide Level 25, Anion Gap 9, Blood Urea Nitrogen 20H, Creatinine 1.2, Estimat Glomerular Filtration Rate > 60, Glucose Level 135H, Calcium Level 9.2, Phosphorus Level 3.4, Magnesium Level 1.7L Height (Feet): 6 Height (Inches): 1.00 Weight (Pounds): 279 Objective General Appearance: no apparent distress, alert HEENT: atraumatic, anicteric Neck: normal alignment, supple, normal inspection Respiratory/Chest: lungs clear, normal breath sounds, other - Tachypnea Cardiovascular/Chest: normal rate, regular rhythm Abdomen: non tender, soft Extremities: non-tender, normal inspection 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 Oct 27, 2020 18:55
--- NOTE | 2020-10-27 19:30 | NUR ---
NURSE NOTES: Receive a report from REVA Seaman. Round is made. Awake and alert. No acute distress noted. No SOB noted. Noted bilateral arm chronic pain but given pain medication AM shift. Bilateral side rails are padded. Suction and oxygen at bed side preparation. Provide fall precautions. Call light within reach. Will continue to monitor.
[2020-10-27 20:00] VITALS: BP 143/72
[2020-10-27] MEDS: Atorvastatin 20mg tab ORAL SCH (20:34)
[2020-10-27] MEDS: Sennosides 8.6mg tab ORAL SCH (20:34)
[2020-10-27] MEDS: TraZODone 50mg tab ORAL SCH (20:34)
[2020-10-28 00:18] VITALS: BP 146/78
[2020-10-28] MEDS: LORazepam Inj 2mg/ml 1ml IVP SCH ×5 (00:20→23:59)
[2020-10-28] MEDS: HYDROcodone/Acetamin 10/325 tab ORAL PRN ×3 (03:54→17:40)
[2020-10-28 04:00] VITALS: BP 140/76
--- NOTE | 2020-10-28 06:42 | NUR ---
NURSE HAND-OFF REPORT: Important Events on Shift: No seizure movement/ Pain medication given x 3 for both arms pain Patient Status: [stable] Diet: [regular] Pending Orders: [] Pending Results/Labs:[] Pending MD notification:[] Latest Vital Signs: Temperature 98.0 , Pulse 58 , B/P 140 /76 , Respiratory Rate 18 , O2 SAT 97 , Room Air, O2 Flow Rate . Vital Sign Comment: [] EKG Rhythm: SB, 1st AVB, BBB Rhythm change?: N MD Notified?: N - MD Response: Latest Chris Fall Score: 70 Fall Risk: High Risk Safety Measures: Call light Within Reach, Bed Alarm Zone 1, Side Rails Side Rails x3, Bed position Low and Locked. Fall Precautions: Yellow Socks
--- NOTE | 2020-10-28 07:10 | NUR ---
NURSE NOTES: Given report to REVA Seaman. Round is made.
[2020-10-28 07:34] LABS: BASOPHILS % (AUTO) 1.2 % (0.0-2.0); EOSINOPHILS % (AUTO) 1.8 % (0.0-3.0); HEMATOCRIT 38.3 % (42.0-52.0); HEMOGLOBIN 12.9 G/DL (14.2-18.0); LYMPHOCYTES % (AUTO) 27.2 % (20.0-45.0); MEAN CORPUSCULAR VOLUME 91 FL (80-99); MONOCYTES % (AUTO) 16.6 % (1.0-10.0); NEUTROPHILS % (AUTO) 53.2 % (45.0-75.0); PLATELET COUNT 151 K/UL (150-450); RED BLOOD COUNT 4.22 M/UL (4.70-6.10); RED CELL DISTRIBUTION WIDTH 13.2 % (11.6-14.8); WHITE BLOOD COUNT 5.1 K/UL (4.8-10.8)
[2020-10-28 07:54] LABS: ANION GAP 10 mmol/L (5-15); BLOOD UREA NITROGEN 20 mg/dL (7-18); CALCIUM 8.9 MG/DL (8.5-10.1); CARBON DIOXIDE 26 MMOL/L (21-32); CHLORIDE 102 MMOL/L (98-107); CREATININE 1.1 MG/DL (0.55-1.30); PHOSPHORUS 3.6 MG/DL (2.5-4.9); POTASSIUM 3.6 MMOL/L (3.5-5.1); SODIUM 138 MMOL/L (136-145)
[2020-10-28 08:00] VITALS: BP 125/62
[2020-10-28] MEDS: Gabapentin 300 MG/6 ML Soln ORAL SCH ×3 (08:23→17:40)
[2020-10-28] MEDS: Vitamin D 1000 units Tab ORAL SCH (08:23)
[2020-10-28] MEDS: Ascorbic Acid 500mg tab ORAL SCH (08:24)
[2020-10-28] MEDS: Aspirin Baby 81mg ORAL SCH (08:24)
[2020-10-28] MEDS: Docusate 100mg cap ORAL SCH (08:24)
[2020-10-28] MEDS: HydrALAZINE 50mg tab ORAL SCH ×2 (08:25→17:38)
--- NOTE | 2020-10-28 10:14 | Pulmonology Progress Note ---
Subjective ROS Limited/Unobtainable: No Interval Events: No seizure since admission Constitutional: Reports: no symptoms HEENT: Repors: no symptoms Respiratory: Reports: no symptoms Cardiovascular: Reports: no symptoms Gastrointestinal/Abdominal: Reports: no symptoms Genitourinary: Reports: no symptoms Allergies: Coded Allergies: No Known Allergies (Unverified , 08/17/20) Objective Last 24 Hour Vital Signs Date Time Temp Pulse Resp B/P (MAP) Pulse Ox O2 Delivery O2 Flow Rate FiO2 10/28/20 08:25 125/62 10/28/20 08:24 57 125/62 10/28/20 08:24 57 125/62 10/28/20 08:00 97.7 57 18 125/62 (83) 96 10/28/20 04:00 98.0 58 18 140/76 (97) 97 10/28/20 04:00 58 10/28/20 00:18 98.3 57 18 146/78 (100) 97 10/28/20 00:00 57 10/27/20 21:00 Room Air 10/27/20 20:34 67 143/72 10/27/20 20:00 98.3 67 18 143/72 (95) 97 10/27/20 20:00 70 10/27/20 18:16 63 18 137/74 97 10/27/20 17:46 63 18 137/74 97 10/27/20 17:45 137/74 10/27/20 16:00 63 10/27/20 16:00 98.1 63 18 137/74 (95) 97 10/27/20 12:45 64 18 148/83 97 10/27/20 12:15 64 18 148/83 97 10/27/20 12:00 99.0 64 18 148/83 (104) 97 10/27/20 12:00 60 Intake and Output 10/27/20 10/28/20 19:00 07:00 Intake Total 600 ml 750 ml Output Total 1000 ml 1800 ml Balance -400 ml -1050 ml Intake Oral 600 ml 750 ml Output Urine Total 1000 ml 1800 ml # Voids 7 General Appearance: no acute distress HEENT: normocephalic Respiratory: lungs clear Cardiovascular: normal rate Abdomen: soft, non tender Extremities: other - b/l leg edema Laboratory Tests 10/28/20 06:55: White Blood Count 5.1, Red Blood Count 4.22L, Hemoglobin 12.9L, Hematocrit 38.3L , Mean Corpuscular Volume 91, Mean Corpuscular Hemoglobin 30.6, Mean Corpuscular Hemoglobin Concent 33.7, Red Cell Distribution Width 13.2, Platelet Count 151, Mean Platelet Volume 8.4, Neutrophils (%) (Auto) 53.2, Lymphocytes (%) (Auto) 27.2, Monocytes (%) (Auto) 16.6H, Eosinophils (%) (Auto) 1.8, Basophils (%) (Auto) 1.2, Sodium Level 138, Potassium Level 3.6, Chloride Level 102, Carbon Dioxide Level 26, Anion Gap 10, Blood Urea Nitrogen 20H, Creatinine 1.1, Estimat Glomerular Filtration Rate > 60, Glucose Level 93, Calcium Level 8.9, Phosphorus Level 3.6, Magnesium Level 1.9 Current Medications Medications (Trade) Dose Ordered Sig/Nicole Route PRN Reason Start Time Stop Time Status Last Admin Dose Admin Acetaminophen (Tylenol) 650 mg Q6H PRN ORAL FEVER 10/25/20 00:45 11/24/20 00:44 Acetaminophen (Tylenol) 650 mg Q6H PRN ORAL For Headache 10/25/20 00:45 11/24/20 00:44 Acetaminophen/ Hydrocodone Bitart (Pontiac 10/325) 1 tab Q4H PRN ORAL PAIN 4-10 10/25/20 06:30 11/01/20 06:29 10/28/20 08:25 Amlodipine Besylate (Norvasc) 10 mg DAILY ORAL 10/25/20 09:00 11/24/20 08:59 10/28/20 08:24 Ascorbic Acid (Vitamin C) 500 mg DAILY ORAL 10/25/20 09:00 11/24/20 08:59 10/28/20 08:24 Aspirin (ASA) 81 mg DAILY ORAL 10/26/20 09:00 12/10/20 08:59 10/28/20 08:24 Atorvastatin Calcium (Lipitor) 40 mg BEDTIME ORAL 10/25/20 21:00 01/23/21 20:59 10/27/20 20:34 Clonidine HCl (Catapres tab) 0.2 mg Q4H PRN ORAL For High Blood Pressure 10/25/20 11:00 01/23/21 10:59 Docusate Sodium (Colace) 100 mg DAILY ORAL 10/25/20 09:00 11/24/20 08:59 10/28/20 08:24 Folic Acid (Folate) 1 mg DAILY ORAL 10/25/20 09:00 11/24/20 08:59 10/28/20 08:23 Gabapentin (Neurontin) 300 mg THREE TIMES A DAY ORAL 10/25/20 09:00 11/24/20 08:59 10/28/20 08:23 Hydralazine HCl (Apresoline) 50 mg BID ORAL 10/25/20 18:00 01/23/21 17:59 10/28/20 08:25 Ibuprofen (Motrin) 600 mg Q6H PRN ORAL Mild Pain (Pain Scale 1-3) 10/25/20 01:30 11/24/20 01:29 Levetiracetam (Keppra) 500 mg Q12HR ORAL 10/26/20 21:00 12/10/20 20:59 10/28/20 08:24 Lorazepam (Ativan 2mg/ml 1ml) 1 mg Q6HR IVP 10/25/20 06:00 11/01/20 05:59 10/28/20 06:07 Metoprolol Tartrate (Lopressor) 25 mg Q12HR ORAL 10/25/20 09:00 01/23/21 08:59 10/28/20 08:24 Multivitamins (Multivitamins) 1 tab DAILY ORAL 10/25/20 09:00 11/24/20 08:59 10/28/20 08:25 Ondansetron HCl (Zofran) 4 mg Q6H PRN ORAL Nausea & Vomiting 10/25/20 01:30 11/24/20 01:29 Risperidone (RisperDAL) 2 mg HSPRN PRN ORAL bedtime agitation 10/25/20 21:00 12/09/20 20:59 Sennosides (Senokot) 17.2 mg QHS ORAL 10/25/20 21:00 11/24/20 20:59 10/27/20 20:34 Trazodone HCl (Desyrel) 50 mg BEDTIME ORAL 10/25/20 21:00 11/24/20 20:59 10/27/20 20:34 Vitamin D (Vitamin D) 5,000 unit DAILY ORAL 10/25/20 09:00 11/24/20 08:59 10/28/20 08:23 Assessment/Plan Assessment/Plan 1. Seizure -seen by neuro - Collin dosage/frequency adjusted 2. Risk of aspiration/pneumonia, due to #1 -Patient is afebrile -Monitor for fever, and seizure - f/u CXR if indicated 3. Smoker -Patient educated on smoking cessation 4. Elevated troponin -Serial troponin; trops downtrending - seen by cardio 5. Leg edema - V/D US of legs negative -> on SCD for DVT ppx The care for this patient was discussed with my supervising physician. Time spent for this case was approximately 31 minutes. Kevin Anderson Oct 28, 2020 10:14
--- NOTE | 2020-10-28 11:06 | Surgery Progress Note ---
Surgery Progress Note Subjective Symptoms: improved, not tolerating diet, passing flatus Objective Last 24 Hour Vital Signs Date Time Temp Pulse Resp B/P (MAP) Pulse Ox O2 Delivery O2 Flow Rate FiO2 10/28/20 09:00 Room Air 10/28/20 08:25 125/62 10/28/20 08:24 57 125/62 10/28/20 08:24 57 125/62 10/28/20 08:00 97.7 57 18 125/62 (83) 96 10/28/20 08:00 59 10/28/20 04:00 98.0 58 18 140/76 (97) 97 10/28/20 04:00 58 10/28/20 00:18 98.3 57 18 146/78 (100) 97 10/28/20 00:00 57 10/27/20 21:00 Room Air 10/27/20 20:34 67 143/72 10/27/20 20:00 98.3 67 18 143/72 (95) 97 10/27/20 20:00 70 10/27/20 18:16 63 18 137/74 97 10/27/20 17:46 63 18 137/74 97 10/27/20 17:45 137/74 10/27/20 16:00 63 10/27/20 16:00 98.1 63 18 137/74 (95) 97 10/27/20 12:45 64 18 148/83 97 10/27/20 12:15 64 18 148/83 97 10/27/20 12:00 99.0 64 18 148/83 (104) 97 10/27/20 12:00 60 I&O Intake and Output 10/27/20 10/28/20 19:00 07:00 Intake Total 600 ml 750 ml Output Total 1000 ml 1800 ml Balance -400 ml -1050 ml Intake Oral 600 ml 750 ml Output Urine Total 1000 ml 1800 ml # Voids 7 Dressing: saturated Cardiovascular: RSR Respiratory: decreased breath sounds Abdomen: non-tender, present bowel sounds, non-distended Extremities: no edema, no tenderness, no cyanosis Laboratory Tests Test 10/28/20 06:55 White Blood Count 5.1 K/UL (4.8-10.8) Red Blood Count 4.22 M/UL (4.70-6.10) L Hemoglobin 12.9 G/DL (14.2-18.0) L Hematocrit 38.3 % (42.0-52.0) L Mean Corpuscular Volume 91 FL (80-99) Mean Corpuscular Hemoglobin 30.6 PG (27.0-31.0) Mean Corpuscular Hemoglobin Concent 33.7 G/DL (32.0-36.0) Red Cell Distribution Width 13.2 % (11.6-14.8) Platelet Count 151 K/UL (150-450) Mean Platelet Volume 8.4 FL (6.5-10.1) Neutrophils (%) (Auto) 53.2 % (45.0-75.0) Lymphocytes (%) (Auto) 27.2 % (20.0-45.0) Monocytes (%) (Auto) 16.6 % (1.0-10.0) H Eosinophils (%) (Auto) 1.8 % (0.0-3.0) Basophils (%) (Auto) 1.2 % (0.0-2.0) Sodium Level 138 MMOL/L (136-145) Potassium Level 3.6 MMOL/L (3.5-5.1) Chloride Level 102 MMOL/L (98-107) Carbon Dioxide Level 26 MMOL/L (21-32) Anion Gap 10 mmol/L (5-15) Blood Urea Nitrogen 20 mg/dL (7-18) H Creatinine 1.1 MG/DL (0.55-1.30) Estimat Glomerular Filtration Rate > 60 mL/min (>60) Glucose Level 93 MG/DL (74-106) Calcium Level 8.9 MG/DL (8.5-10.1) Phosphorus Level 3.6 MG/DL (2.5-4.9) Magnesium Level 1.9 MG/DL (1.8-2.4) Plan Problems: (1) Status post CVA (2) Seizure disorder (3) Elevated troponin (4) Altered mental status (5) Head injury (6) Contusion of left hip (7) Contusion of right knee (8) Lower extremity edema Assessment & Plan: 60-year-old with male multimedical comorbidities presented with seizures identified lower extremity swelling potential cellulitis surgery called to evaluate long history of bilateral noted no erythema no tenderness unlikely DVT cardiac issues identified cardiology but appreciated on Lasix continue Lasix keep legs elevated while in bed okay to ambulate okay for diet remainder of exam fairly benign no acute trauma from seizure or falls. Thank you will follow with recommendations David Temple Oct 28, 2020 11:06
--- NOTE | 2020-10-28 11:30 | General Progress Note ---
Subjective Date patient seen: Oct 28, 2020 Time patient seen: 11:00 Cardiovascular: Denies: edema Respiratory: Denies: cough Gastrointestinal/Abdominal: Denies: abdominal pain Neurologic/Psychiatric: Denies: anxiety, depressed Allergies: Coded Allergies: No Known Allergies (Unverified , 08/17/20) Subjective Follow up for breakthrough seizure Patient doing well, no further seizure activity. Doing well Objective Last 24 Hour Vital Signs Date Time Temp Pulse Resp B/P (MAP) Pulse Ox O2 Delivery O2 Flow Rate FiO2 10/28/20 09:00 Room Air 10/28/20 08:25 125/62 10/28/20 08:24 57 125/62 10/28/20 08:24 57 125/62 10/28/20 08:00 97.7 57 18 125/62 (83) 96 10/28/20 08:00 59 10/28/20 04:00 98.0 58 18 140/76 (97) 97 10/28/20 04:00 58 10/28/20 00:18 98.3 57 18 146/78 (100) 97 10/28/20 00:00 57 10/27/20 21:00 Room Air 10/27/20 20:34 67 143/72 10/27/20 20:00 98.3 67 18 143/72 (95) 97 10/27/20 20:00 70 10/27/20 18:16 63 18 137/74 97 10/27/20 17:46 63 18 137/74 97 10/27/20 17:45 137/74 10/27/20 16:00 63 10/27/20 16:00 98.1 63 18 137/74 (95) 97 10/27/20 12:45 64 18 148/83 97 10/27/20 12:15 64 18 148/83 97 10/27/20 12:00 99.0 64 18 148/83 (104) 97 10/27/20 12:00 60 Intake and Output 10/27/20 10/28/20 19:00 07:00 Intake Total 600 ml 750 ml Output Total 1000 ml 1800 ml Balance -400 ml -1050 ml Intake Oral 600 ml 750 ml Output Urine Total 1000 ml 1800 ml # Voids 7 Laboratory Tests 10/28/20 06:55: White Blood Count 5.1, Red Blood Count 4.22L, Hemoglobin 12.9L, Hematocrit 38.3L , Mean Corpuscular Volume 91, Mean Corpuscular Hemoglobin 30.6, Mean Corpuscular Hemoglobin Concent 33.7, Red Cell Distribution Width 13.2, Platelet Count 151, Mean Platelet Volume 8.4, Neutrophils (%) (Auto) 53.2, Lymphocytes (%) (Auto) 27.2, Monocytes (%) (Auto) 16.6H, Eosinophils (%) (Auto) 1.8, Basophils (%) (Auto) 1.2, Sodium Level 138, Potassium Level 3.6, Chloride Level 102, Carbon Dioxide Level 26, Anion Gap 10, Blood Urea Nitrogen 20H, Creatinine 1.1, Estimat Glomerular Filtration Rate > 60, Glucose Level 93, Calcium Level 8.9, Phosphorus Level 3.6, Magnesium Level 1.9 Height (Feet): 6 Height (Inches): 1.00 Weight (Pounds): 279 General Appearance: alert Neck: normal alignment, supple Cardiovascular: normal rate, regular rhythm Respiratory/Chest: lungs clear, normal breath sounds Assessment/Plan Assessment/Plan: 60 year old man with schizophrenia, epilepsy, HTN, history of CVA with left sided residual hemiparesis, who presented with breakthrough seizure #Breakthrough seizure #Epilepsy #NSTEMI - likely type 2, demand ischemia in the setting of multiple seizures #history of CVA with left sided residual weakness #Hypertensive urgency #Schizophrenia -cont telemetry -Cardiac monitoring -Serial troponin -cont ASA, Statin, metoprolol, amlodipine and hydralazine -continue Kera bid -Neurology eval -Cardiology eval I spent 35 minutes on this patient's case, and 20 minutes was dedicated to counseling and/or care coordination with RN, underwriting consultant Keenan Lu MD Oct 28, 2020 11:30
[2020-10-28 12:00] VITALS: BP 151/90
--- NOTE | 2020-10-28 14:09 | Cardiac Electrophysiology PN ---
Assessment/Plan Assessment/Plan 1. Elevated troponin. The patient currently does not have any chest pain. EKG does not show acute ischemic changes. Troponin 0.7 to 1.0 In the meantime continue aspirin, beta-filiberto, and statin. 2. Possible congestive heart failure. EF 60%. 3. Accelerated hypertension. Better on hydralazine 50 mg b.i.d. ,metoprolol 25 mg b.i.d. Norvasc 10 mg daily and p.r.n. clonidine 4. Uncontrolled seizures. 5. Nonsustained VT. No NE. Nl EF. Already on Metoprolol DW RN Subjective Subjective In SR no CP or SOB. Had short run of nonsustained VT 10 beats at 12.42 PM on 10/27/20 Objective Last 24 Hour Vital Signs Date Time Temp Pulse Resp B/P (MAP) Pulse Ox O2 Delivery O2 Flow Rate FiO2 10/28/20 13:21 65 18 151/90 96 10/28/20 12:00 98.5 57 18 151/90 (110) 96 10/28/20 12:00 65 10/28/20 09:00 Room Air 10/28/20 08:25 125/62 10/28/20 08:24 57 125/62 10/28/20 08:24 57 125/62 10/28/20 08:00 97.7 57 18 125/62 (83) 96 10/28/20 08:00 59 10/28/20 04:00 98.0 58 18 140/76 (97) 97 10/28/20 04:00 58 10/28/20 00:18 98.3 57 18 146/78 (100) 97 10/28/20 00:00 57 10/27/20 21:00 Room Air 10/27/20 20:34 67 143/72 10/27/20 20:00 98.3 67 18 143/72 (95) 97 10/27/20 20:00 70 10/27/20 18:16 63 18 137/74 97 10/27/20 17:46 63 18 137/74 97 10/27/20 17:45 137/74 10/27/20 16:00 63 10/27/20 16:00 98.1 63 18 137/74 (95) 97 Intake and Output 10/27/20 10/28/20 19:00 07:00 Intake Total 600 ml 750 ml Output Total 1000 ml 1800 ml Balance -400 ml -1050 ml Intake Oral 600 ml 750 ml Output Urine Total 1000 ml 1800 ml # Voids 7 Laboratory Tests Test 10/28/20 06:55 White Blood Count 5.1 K/UL (4.8-10.8) Red Blood Count 4.22 M/UL (4.70-6.10) L Hemoglobin 12.9 G/DL (14.2-18.0) L Hematocrit 38.3 % (42.0-52.0) L Mean Corpuscular Volume 91 FL (80-99) Mean Corpuscular Hemoglobin 30.6 PG (27.0-31.0) Mean Corpuscular Hemoglobin Concent 33.7 G/DL (32.0-36.0) Red Cell Distribution Width 13.2 % (11.6-14.8) Platelet Count 151 K/UL (150-450) Mean Platelet Volume 8.4 FL (6.5-10.1) Neutrophils (%) (Auto) 53.2 % (45.0-75.0) Lymphocytes (%) (Auto) 27.2 % (20.0-45.0) Monocytes (%) (Auto) 16.6 % (1.0-10.0) H Eosinophils (%) (Auto) 1.8 % (0.0-3.0) Basophils (%) (Auto) 1.2 % (0.0-2.0) Sodium Level 138 MMOL/L (136-145) Potassium Level 3.6 MMOL/L (3.5-5.1) Chloride Level 102 MMOL/L (98-107) Carbon Dioxide Level 26 MMOL/L (21-32) Anion Gap 10 mmol/L (5-15) Blood Urea Nitrogen 20 mg/dL (7-18) H Creatinine 1.1 MG/DL (0.55-1.30) Estimat Glomerular Filtration Rate > 60 mL/min (>60) Glucose Level 93 MG/DL (74-106) Calcium Level 8.9 MG/DL (8.5-10.1) Phosphorus Level 3.6 MG/DL (2.5-4.9) Magnesium Level 1.9 MG/DL (1.8-2.4) Objective HEAD AND NECK: no JVD. LUNGS: Clear. CARDIOVASCULAR: Regular S1 and S2 with no gallop or murmur. ABDOMEN: Soft. EXTREMITIES: No pitting edema. Hakeem Henriquez MD Oct 28, 2020 14:09
[2020-10-28 16:00] VITALS: BP 144/69
--- NOTE | 2020-10-28 17:54 | Nephrology Progress Note ---
Assessment/Plan Plan #Breakthrough seizure #Epilepsy #NSTEMI - likely type 2, demand ischemia in the setting of multiple seizures #history of CVA with left sided residual weakness #Hypertensive urgency #Schizophrenia -admit to telemetry -Cardiac monitoring -Serial troponin -cont ASA, Statin, metoprolol, amlodipine and hydralazine -continue Keppra - possible increase to bid -Neurology eval -Cardiology eval Subjective ROS Limited/Unobtainable: No Constitutional: Reports: weakness HEENT: Denies: no symptoms, eye pain, blurred vision, tearing, double vision, ear pain, ear discharge, nose pain, nose congestion, throat pain, throat swelling, mouth pain, mouth swelling, other Genitourinary: Denies: no symptoms, burning, discharge, frequency, flank pain, hematuria, incontinence, pain, urgency, other Neurologic/Psychiatric: Denies: no symptoms, anxiety, depressed, emotional problems, headache, numbness, paresthesia, pre-existing deficit, seizure, tingling, tremors, weakness, other Objective Objective Last 24 Hour Vital Signs Date Time Temp Pulse Resp B/P (MAP) Pulse Ox O2 Delivery O2 Flow Rate FiO2 10/28/20 17:40 64 18 144/69 96 10/28/20 17:38 144/69 10/28/20 16:00 64 10/28/20 16:00 98.3 63 18 144/69 (94) 96 10/28/20 13:51 65 18 151/90 96 10/28/20 13:21 65 18 151/90 96 10/28/20 12:00 98.5 57 18 151/90 (110) 96 10/28/20 12:00 65 10/28/20 09:00 Room Air 10/28/20 08:25 125/62 10/28/20 08:24 57 125/62 10/28/20 08:24 57 125/62 10/28/20 08:00 97.7 57 18 125/62 (83) 96 10/28/20 08:00 59 10/28/20 04:00 98.0 58 18 140/76 (97) 97 10/28/20 04:00 58 10/28/20 00:18 98.3 57 18 146/78 (100) 97 10/28/20 00:00 57 10/27/20 21:00 Room Air 10/27/20 20:34 67 143/72 10/27/20 20:00 98.3 67 18 143/72 (95) 97 10/27/20 20:00 70 10/27/20 18:16 63 18 137/74 97 Intake and Output 10/27/20 10/28/20 19:00 07:00 Intake Total 600 ml 750 ml Output Total 1000 ml 1800 ml Balance -400 ml -1050 ml Intake Oral 600 ml 750 ml Output Urine Total 1000 ml 1800 ml # Voids 7 Laboratory Tests 10/28/20 06:55: White Blood Count 5.1, Red Blood Count 4.22L, Hemoglobin 12.9L, Hematocrit 38.3L , Mean Corpuscular Volume 91, Mean Corpuscular Hemoglobin 30.6, Mean Corpuscular Hemoglobin Concent 33.7, Red Cell Distribution Width 13.2, Platelet Count 151, Mean Platelet Volume 8.4, Neutrophils (%) (Auto) 53.2, Lymphocytes (%) (Auto) 27.2, Monocytes (%) (Auto) 16.6H, Eosinophils (%) (Auto) 1.8, Basophils (%) (Auto) 1.2, Sodium Level 138, Potassium Level 3.6, Chloride Level 102, Carbon Dioxide Level 26, Anion Gap 10, Blood Urea Nitrogen 20H, Creatinine 1.1, Estimat Glomerular Filtration Rate > 60, Glucose Level 93, Calcium Level 8.9, Phosphorus Level 3.6, Magnesium Level 1.9 Height (Feet): 6 Height (Inches): 1.00 Weight (Pounds): 279 Nicky Munoz M.D. Oct 28, 2020 17:54
--- NOTE | 2020-10-28 19:30 | NUR ---
NURSE NOTES: Receive a report from Jurgen. Round is made. Pt is asleep without acute distress. On bed bound. Pain on bilateral arms is tolerating at this time. Provide fall precautions. Side rails are padded. On seizure medication to control. Call light within reach. Will continue to monitor.
[2020-10-28 20:24] VITALS: BP 163/85
[2020-10-28] MEDS: TraZODone 50mg tab ORAL SCH (20:26)
[2020-10-28] MEDS: Sennosides 8.6mg tab ORAL SCH (20:27)
[2020-10-28] MEDS: Atorvastatin 20mg tab ORAL SCH (20:27)
[2020-10-29] VITALS: BP 120/79
[2020-10-29 04:30] VITALS: BP 133/67
[2020-10-29] MEDS: LORazepam Inj 2mg/ml 1ml IVP SCH ×2 (05:46→12:51)
--- NOTE | 2020-10-29 07:06 | NUR ---
NURSE HAND-OFF REPORT: Important Events on Shift: No seizure attack. Joint soreness. Patient Status: [stable] Diet: [regular] Pending Orders: [] Pending Results/Labs:[] Pending MD notification:[] Latest Vital Signs: Temperature 98.0 , Pulse 58 , B/P 133 /67 , Respiratory Rate 18 , O2 SAT 96 , Room Air, O2 Flow Rate . Vital Sign Comment: [] EKG Rhythm: SR, 1st AVB, BBB Rhythm change?: N MD Notified?: N - MD Response: Latest Chris Fall Score: 70 Fall Risk: High Risk Safety Measures: Call light Within Reach, Bed Alarm Zone 1, Side Rails Side Rails x3, Bed position Low and Locked. Fall Precautions: Yellow Socks Report to aida Seaman RN.
[2020-10-29 08:00] VITALS: BP 130/66
[2020-10-29 09:00] LABS: BASOPHILS % (AUTO) 0.8 % (0.0-2.0); EOSINOPHILS % (AUTO) 1.1 % (0.0-3.0); HEMATOCRIT 39.7 % (42.0-52.0); HEMOGLOBIN 13.1 G/DL (14.2-18.0); LYMPHOCYTES % (AUTO) 21.9 % (20.0-45.0); MEAN CORPUSCULAR VOLUME 90 FL (80-99); MONOCYTES % (AUTO) 13.4 % (1.0-10.0); NEUTROPHILS % (AUTO) 62.8 % (45.0-75.0); PLATELET COUNT 170 K/UL (150-450); RED CELL DISTRIBUTION WIDTH 12.9 % (11.6-14.8); WHITE BLOOD COUNT 6.1 K/UL (4.8-10.8)
--- NOTE | 2020-10-29 09:06 | Pulmonology Progress Note ---
Subjective ROS Limited/Unobtainable: No Interval Events: No seizure since admission Constitutional: Reports: no symptoms HEENT: Repors: no symptoms Respiratory: Reports: no symptoms Cardiovascular: Reports: no symptoms Gastrointestinal/Abdominal: Reports: no symptoms Genitourinary: Reports: no symptoms Allergies: Coded Allergies: No Known Allergies (Unverified , 08/17/20) Objective Last 24 Hour Vital Signs Date Time Temp Pulse Resp B/P (MAP) Pulse Ox O2 Delivery O2 Flow Rate FiO2 10/29/20 08:00 97.7 65 18 130/66 (87) 98 10/29/20 04:30 98.0 58 18 133/67 (89) 96 10/29/20 04:00 65 10/29/20 00:00 63 10/29/20 00:00 97.9 65 18 120/79 (93) 98 10/28/20 21:00 Room Air 10/28/20 20:26 76 163/85 10/28/20 20:24 98.3 76 18 163/85 (111) 98 10/28/20 20:00 65 10/28/20 18:10 64 18 144/69 96 10/28/20 17:40 64 18 144/69 96 10/28/20 17:38 144/69 10/28/20 16:00 64 10/28/20 16:00 98.3 63 18 144/69 (94) 96 10/28/20 13:51 65 18 151/90 96 10/28/20 13:21 65 18 151/90 96 10/28/20 12:00 98.5 57 18 151/90 (110) 96 10/28/20 12:00 65 Intake and Output 10/28/20 10/29/20 19:00 07:00 Intake Total 750 ml 800 ml Output Total 1500 ml 1550 ml Balance -750 ml -750 ml Intake Oral 750 ml 800 ml Output Urine Total 1500 ml 1550 ml General Appearance: no acute distress HEENT: normocephalic Respiratory: lungs clear Cardiovascular: normal rate Abdomen: soft, non tender Extremities: other - b/l leg edema Laboratory Tests 10/29/20 08:32: White Blood Count [Pending], Red Blood Count [Pending], Hemoglobin [Pending], Hematocrit [Pending], Mean Corpuscular Volume [Pending], Mean Corpuscular Hemoglobin [Pending], Mean Corpuscular Hemoglobin Concent [Pending], Red Cell Distribution Width [Pending], Platelet Count [Pending], Mean Platelet Volume [Pending], Neutrophils (%) (Auto) [Pending], Lymphocytes (%) (Auto) [Pending], Monocytes (%) (Auto) [Pending], Eosinophils (%) (Auto) [Pending], Basophils (%) (Auto) [Pending], Sodium Level [Pending], Potassium Level [Pending], Chloride Level [Pending], Carbon Dioxide Level [Pending], Blood Urea Nitrogen [Pending], Creatinine [Pending], Estimat Glomerular Filtration Rate [Pending], Glucose Level [Pending], Calcium Level [Pending], Phosphorus Level [Pending], Magnesium Level [Pending] Current Medications Medications (Trade) Dose Ordered Sig/Nicole Route PRN Reason Start Time Stop Time Status Last Admin Dose Admin Acetaminophen (Tylenol) 650 mg Q6H PRN ORAL FEVER 10/25/20 00:45 11/24/20 00:44 Acetaminophen (Tylenol) 650 mg Q6H PRN ORAL For Headache 10/25/20 00:45 11/24/20 00:44 Acetaminophen/ Hydrocodone Bitart ([place] 10/325) 1 tab Q4H PRN ORAL PAIN 4-10 10/25/20 06:30 11/01/20 06:29 10/28/20 17:40 Amlodipine Besylate (Norvasc) 10 mg DAILY ORAL 10/25/20 09:00 11/24/20 08:59 10/28/20 08:24 Ascorbic Acid (Vitamin C) 500 mg DAILY ORAL 10/25/20 09:00 11/24/20 08:59 10/28/20 08:24 Aspirin (ASA) 81 mg DAILY ORAL 10/26/20 09:00 12/10/20 08:59 10/28/20 08:24 Atorvastatin Calcium (Lipitor) 40 mg BEDTIME ORAL 10/25/20 21:00 01/23/21 20:59 10/28/20 20:27 Clonidine HCl (Catapres tab) 0.2 mg Q4H PRN ORAL For High Blood Pressure 10/25/20 11:00 01/23/21 10:59 Docusate Sodium (Colace) 100 mg DAILY ORAL 10/25/20 09:00 11/24/20 08:59 10/28/20 08:24 Folic Acid (Folate) 1 mg DAILY ORAL 10/25/20 09:00 11/24/20 08:59 10/28/20 08:23 Gabapentin (Neurontin) 300 mg THREE TIMES A DAY ORAL 10/25/20 09:00 11/24/20 08:59 10/28/20 17:40 Hydralazine HCl (Apresoline) 50 mg BID ORAL 10/25/20 18:00 01/23/21 17:59 10/28/20 17:38 Ibuprofen (Motrin) 600 mg Q6H PRN ORAL Mild Pain (Pain Scale 1-3) 10/25/20 01:30 11/24/20 01:29 Levetiracetam (Keppra) 500 mg Q12HR ORAL 10/26/20 21:00 12/10/20 20:59 10/28/20 20:27 Lorazepam (Ativan 2mg/ml 1ml) 1 mg Q6HR IVP 10/25/20 06:00 11/01/20 05:59 10/29/20 05:46 Metoprolol Tartrate (Lopressor) 25 mg Q12HR ORAL 10/25/20 09:00 01/23/21 08:59 10/28/20 20:26 Multivitamins (Multivitamins) 1 tab DAILY ORAL 10/25/20 09:00 11/24/20 08:59 10/28/20 08:25 Ondansetron HCl (Zofran) 4 mg Q6H PRN ORAL Nausea & Vomiting 10/25/20 01:30 11/24/20 01:29 Risperidone (RisperDAL) 2 mg HSPRN PRN ORAL bedtime agitation 10/25/20 21:00 12/09/20 20:59 Sennosides (Senokot) 17.2 mg QHS ORAL 10/25/20 21:00 11/24/20 20:59 10/28/20 20:27 Trazodone HCl (Desyrel) 50 mg BEDTIME ORAL 10/25/20 21:00 11/24/20 20:59 10/28/20 20:26 Vitamin D (Vitamin D) 5,000 unit DAILY ORAL 10/25/20 09:00 11/24/20 08:59 10/28/20 08:23 Assessment/Plan Assessment/Plan 1. Seizure -seen by neuro - Kethienra dosage/frequency adjusted 2. Risk of aspiration/pneumonia, due to #1 -Patient is afebrile -Monitor for fever, and seizure - f/u CXR if indicated 3. Smoker -Patient educated on smoking cessation 4. Elevated troponin -Serial troponin; trops downtrending - seen by cardio 5. Leg edema - V/D US of legs negative -> on SCD and ambulatory for DVT ppx The care for this patient was discussed with my supervising physician. Time spent for this case was approximately 31 minutes. Kevin Anderson Oct 29, 2020 09:06
[2020-10-29 09:28] LABS: ANION GAP 9 mmol/L (5-15); BLOOD UREA NITROGEN 17 mg/dL (7-18); CALCIUM 9.1 MG/DL (8.5-10.1); CARBON DIOXIDE 26 MMOL/L (21-32); CHLORIDE 105 MMOL/L (98-107); CREATININE 1.2 MG/DL (0.55-1.30); PHOSPHORUS 3.4 MG/DL (2.5-4.9); POTASSIUM 3.7 MMOL/L (3.5-5.1); SODIUM 140 MMOL/L (136-145)
--- NOTE | 2020-10-29 09:40 | NUR ---
PT NOTE Attempted to see patient for PT treatment. Patient declining to participate with PT at this time, c/o cramping BUEs and LLE. Jurgen ARDON notified, will follow.
[2020-10-29] MEDS: Gabapentin 300 MG/6 ML Soln ORAL SCH ×2 (09:45→12:51)
[2020-10-29] MEDS: Aspirin Baby 81mg ORAL SCH (09:46)
[2020-10-29] MEDS: Docusate 100mg cap ORAL SCH (09:46)
[2020-10-29] MEDS: Ascorbic Acid 500mg tab ORAL SCH (09:46)
[2020-10-29] MEDS: Vitamin D 1000 units Tab ORAL SCH (09:46)
[2020-10-29] MEDS: HYDROcodone/Acetamin 10/325 tab ORAL PRN (09:47)
[2020-10-29] MEDS: HydrALAZINE 50mg tab ORAL SCH (09:47)
--- NOTE | 2020-10-29 10:50 | NUR ---
PT NOTE Second attempt to see patient for PT treatment. Patient c/o pain, declining to participate with PT. Jurgen ARDON notified, will follow up tomorrow.
--- NOTE | 2020-10-29 11:12 | Nephrology Progress Note ---
Assessment/Plan Plan #Breakthrough seizure #Epilepsy #NSTEMI - likely type 2, demand ischemia in the setting of multiple seizures #history of CVA with left sided residual weakness #Hypertensive urgency #Schizophrenia -admit to telemetry -Cardiac monitoring -Serial troponin -cont ASA, Statin, metoprolol, amlodipine and hydralazine -continue Keppra - possible increase to bid -Neurology eval -Cardiology eval Subjective Subjective no acute events no CP NO SOB Objective Objective Last 24 Hour Vital Signs Date Time Temp Pulse Resp B/P (MAP) Pulse Ox O2 Delivery O2 Flow Rate FiO2 10/29/20 09:47 130/66 10/29/20 09:46 65 130/66 10/29/20 09:46 65 130/66 10/29/20 08:00 97.7 65 18 130/66 (87) 98 10/29/20 04:30 98.0 58 18 133/67 (89) 96 10/29/20 04:00 65 10/29/20 00:00 63 10/29/20 00:00 97.9 65 18 120/79 (93) 98 10/28/20 21:00 Room Air 10/28/20 20:26 76 163/85 10/28/20 20:24 98.3 76 18 163/85 (111) 98 10/28/20 20:00 65 10/28/20 18:10 64 18 144/69 96 10/28/20 17:40 64 18 144/69 96 10/28/20 17:38 144/69 10/28/20 16:00 64 10/28/20 16:00 98.3 63 18 144/69 (94) 96 10/28/20 13:51 65 18 151/90 96 10/28/20 13:21 65 18 151/90 96 10/28/20 12:00 98.5 57 18 151/90 (110) 96 10/28/20 12:00 65 Intake and Output 10/28/20 10/29/20 19:00 07:00 Intake Total 750 ml 800 ml Output Total 1500 ml 1550 ml Balance -750 ml -750 ml Intake Oral 750 ml 800 ml Output Urine Total 1500 ml 1550 ml Laboratory Tests 10/29/20 08:32: White Blood Count 6.1, Red Blood Count 4.40L, Hemoglobin 13.1L, Hematocrit 39.7L , Mean Corpuscular Volume 90, Mean Corpuscular Hemoglobin 29.8, Mean Corpuscular Hemoglobin Concent 33.1, Red Cell Distribution Width 12.9, Platelet Count 170, Mean Platelet Volume 8.5, Neutrophils (%) (Auto) 62.8, Lymphocytes (%) (Auto) 21.9, Monocytes (%) (Auto) 13.4H, Eosinophils (%) (Auto) 1.1, Basophils (%) (Auto) 0.8, Sodium Level 140, Potassium Level 3.7, Chloride Level 105, Carbon Dioxide Level 26, Anion Gap 9, Blood Urea Nitrogen 17, Creatinine 1.2, Estimat Glomerular Filtration Rate > 60, Glucose Level 117H, Calcium Level 9.1, Phosphorus Level 3.4, Magnesium Level 2.1 Height (Feet): 6 Height (Inches): 1.00 Weight (Pounds): 279 Objective General Appearance: no apparent distress, alert HEENT: atraumatic, anicteric Neck: normal alignment, supple, normal inspection Respiratory/Chest: lungs clear, normal breath sounds, other - Tachypnea Cardiovascular/Chest: normal rate, regular rhythm Abdomen: non tender, soft Extremities: non-tender, normal inspection Neurologic: joint special operations II-XII grossly normal, alert Nicky Munoz M.D. Oct 29, 2020 11:12
[2020-10-29 12:00] VITALS: BP 113/61
--- NOTE | 2020-10-29 12:00 | Cardiac Electrophysiology PN ---
Assessment/Plan Assessment/Plan 1. Elevated troponin. The patient currently does not have any chest pain. EKG does not show acute ischemic changes. Troponin 0.7 to 1.0 In the meantime continue aspirin, beta-filiberto, and statin. 2. Possible congestive heart failure. EF 60%. 3. Accelerated hypertension. On hydralazine 50 mg bid ,metoprolol 25 mg bid, Norvasc 10 mg daily and p.r.n. clonidine 4. Uncontrolled seizures. 5. Nonsustained VT. No NJ. Nl EF. Already on Metoprolol DW RN Subjective Subjective In SR no CP or SOB. Had short run of nonsustained VT 10 beats at 12.42 PM on 10/27/20 No further VT Objective Last 24 Hour Vital Signs Date Time Temp Pulse Resp B/P (MAP) Pulse Ox O2 Delivery O2 Flow Rate FiO2 10/29/20 09:47 130/66 10/29/20 09:46 65 130/66 10/29/20 09:46 65 130/66 10/29/20 08:00 97.7 65 18 130/66 (87) 98 10/29/20 04:30 98.0 58 18 133/67 (89) 96 10/29/20 04:00 65 10/29/20 00:00 63 10/29/20 00:00 97.9 65 18 120/79 (93) 98 10/28/20 21:00 Room Air 10/28/20 20:26 76 163/85 10/28/20 20:24 98.3 76 18 163/85 (111) 98 10/28/20 20:00 65 10/28/20 18:10 64 18 144/69 96 10/28/20 17:40 64 18 144/69 96 10/28/20 17:38 144/69 10/28/20 16:00 64 10/28/20 16:00 98.3 63 18 144/69 (94) 96 10/28/20 13:51 65 18 151/90 96 10/28/20 13:21 65 18 151/90 96 10/28/20 12:00 98.5 57 18 151/90 (110) 96 10/28/20 12:00 65 Intake and Output 10/28/20 10/29/20 19:00 07:00 Intake Total 750 ml 800 ml Output Total 1500 ml 1550 ml Balance -750 ml -750 ml Intake Oral 750 ml 800 ml Output Urine Total 1500 ml 1550 ml Laboratory Tests Test 10/29/20 08:32 White Blood Count 6.1 K/UL (4.8-10.8) Red Blood Count 4.40 M/UL (4.70-6.10) L Hemoglobin 13.1 G/DL (14.2-18.0) L Hematocrit 39.7 % (42.0-52.0) L Mean Corpuscular Volume 90 FL (80-99) Mean Corpuscular Hemoglobin 29.8 PG (27.0-31.0) Mean Corpuscular Hemoglobin Concent 33.1 G/DL (32.0-36.0) Red Cell Distribution Width 12.9 % (11.6-14.8) Platelet Count 170 K/UL (150-450) Mean Platelet Volume 8.5 FL (6.5-10.1) Neutrophils (%) (Auto) 62.8 % (45.0-75.0) Lymphocytes (%) (Auto) 21.9 % (20.0-45.0) Monocytes (%) (Auto) 13.4 % (1.0-10.0) H Eosinophils (%) (Auto) 1.1 % (0.0-3.0) Basophils (%) (Auto) 0.8 % (0.0-2.0) Sodium Level 140 MMOL/L (136-145) Potassium Level 3.7 MMOL/L (3.5-5.1) Chloride Level 105 MMOL/L (98-107) Carbon Dioxide Level 26 MMOL/L (21-32) Anion Gap 9 mmol/L (5-15) Blood Urea Nitrogen 17 mg/dL (7-18) Creatinine 1.2 MG/DL (0.55-1.30) Estimat Glomerular Filtration Rate > 60 mL/min (>60) Glucose Level 117 MG/DL (74-106) H Calcium Level 9.1 MG/DL (8.5-10.1) Phosphorus Level 3.4 MG/DL (2.5-4.9) Magnesium Level 2.1 MG/DL (1.8-2.4) Objective HEAD AND NECK: no JVD. LUNGS: Clear. CARDIOVASCULAR: Regular S1 and S2 with no gallop or murmur. ABDOMEN: Soft. EXTREMITIES: No pitting edema. Hakeem Henriquez MD Oct 29, 2020 12:00
--- NOTE | 2020-10-29 12:04 | Neurology Progress Note ---
Interim History Interim History ROS Limited/Unobtainable: No Events: no events Objective Physical Exam Last Vital Signs Date Time Temp Pulse Resp B/P (MAP) Pulse Ox O2 Delivery O2 Flow Rate FiO2 10/29/20 09:47 130/66 10/29/20 09:46 65 10/29/20 08:00 97.7 18 98 10/28/20 21:00 Room Air Laboratory Tests Test 10/29/20 08:32 White Blood Count 6.1 K/UL (4.8-10.8) Red Blood Count 4.40 M/UL (4.70-6.10) L Hemoglobin 13.1 G/DL (14.2-18.0) L Hematocrit 39.7 % (42.0-52.0) L Mean Corpuscular Volume 90 FL (80-99) Mean Corpuscular Hemoglobin 29.8 PG (27.0-31.0) Mean Corpuscular Hemoglobin Concent 33.1 G/DL (32.0-36.0) Red Cell Distribution Width 12.9 % (11.6-14.8) Platelet Count 170 K/UL (150-450) Mean Platelet Volume 8.5 FL (6.5-10.1) Neutrophils (%) (Auto) 62.8 % (45.0-75.0) Lymphocytes (%) (Auto) 21.9 % (20.0-45.0) Monocytes (%) (Auto) 13.4 % (1.0-10.0) H Eosinophils (%) (Auto) 1.1 % (0.0-3.0) Basophils (%) (Auto) 0.8 % (0.0-2.0) Sodium Level 140 MMOL/L (136-145) Potassium Level 3.7 MMOL/L (3.5-5.1) Chloride Level 105 MMOL/L (98-107) Carbon Dioxide Level 26 MMOL/L (21-32) Anion Gap 9 mmol/L (5-15) Blood Urea Nitrogen 17 mg/dL (7-18) Creatinine 1.2 MG/DL (0.55-1.30) Estimat Glomerular Filtration Rate > 60 mL/min (>60) Glucose Level 117 MG/DL (74-106) H Calcium Level 9.1 MG/DL (8.5-10.1) Phosphorus Level 3.4 MG/DL (2.5-4.9) Magnesium Level 2.1 MG/DL (1.8-2.4) Neurologic Exam Objective REVIEW OF SYSTEMS: Negative other than what was mentioned in the history of present illness. Physical Exam VSS General: Pt is awake and oriented x4 he is getting a echo at bedside with tech Neuro: Awake and Oriented has insight to hospitalization Comprehension is intact Language parameters intact. Cranial nerve II- XII tested are tested PERRLA, no nystagmus No facial droop Tongue is midline Hearing intact. Motor: No involuntary movement Bilat upper extremity strength is 3/5, bilat lower extremity strength 3/5 Gait not tested, Sensation intact to light touch bilat. Impression/Recommendations Diagnostic Impression LAB DATA: White count 7, hemoglobin 13.8, hematocrit 42.7, platelet m148. So dium 135, potassium 4.0, BUN of 14, creatinine 1.1, glucose of 102. IMAGING:CT Head: 1. Interval mildly increased subtle hypodensity in the right basal ganglia region could reflect changes of chronic microvascular ischemia, although early ischemia could potentially have this appearance. 2. Correlate with presentation and consider additional imaging if felt to alter clinical management. 3. Otherwise no acute intracranial abnormality. 4. Otherwise unremarkable study. ASSESSMENT AND REC': 1. Seizure Disorder --> continue Keppra BID at this time.Outpatient Neurology follow up once discharged for seizure management 2. Elevated troponin 3. Possible congestive heart failure. --> per cards 4. Hypertension. Thank you for allowing us to participate in patient's care, plan of care was reviewed with Dr. Jevon Hannah who agrees. Ivana Bruner NP Oct 29, 2020 12:04
--- NOTE | 2020-10-29 12:08 | Surgery Progress Note ---
Surgery Progress Note Subjective Additional Comments abd pain resolved no n/v doing well comfortable tolerating +flatus Objective Last 24 Hour Vital Signs Date Time Temp Pulse Resp B/P (MAP) Pulse Ox O2 Delivery O2 Flow Rate FiO2 10/29/20 09:47 130/66 10/29/20 09:46 65 130/66 10/29/20 09:46 65 130/66 10/29/20 08:00 97.7 65 18 130/66 (87) 98 10/29/20 04:30 98.0 58 18 133/67 (89) 96 10/29/20 04:00 65 10/29/20 00:00 63 10/29/20 00:00 97.9 65 18 120/79 (93) 98 10/28/20 21:00 Room Air 10/28/20 20:26 76 163/85 10/28/20 20:24 98.3 76 18 163/85 (111) 98 10/28/20 20:00 65 10/28/20 18:10 64 18 144/69 96 10/28/20 17:40 64 18 144/69 96 10/28/20 17:38 144/69 10/28/20 16:00 64 10/28/20 16:00 98.3 63 18 144/69 (94) 96 10/28/20 13:51 65 18 151/90 96 10/28/20 13:21 65 18 151/90 96 I&O Intake and Output 10/28/20 10/29/20 19:00 07:00 Intake Total 750 ml 800 ml Output Total 1500 ml 1550 ml Balance -750 ml -750 ml Intake Oral 750 ml 800 ml Output Urine Total 1500 ml 1550 ml Dressing: saturated Cardiovascular: RSR Respiratory: decreased breath sounds Abdomen: soft, non-tender, present bowel sounds, non-distended Extremities: no edema, no tenderness, no cyanosis Laboratory Tests Test 10/29/20 08:32 White Blood Count 6.1 K/UL (4.8-10.8) Red Blood Count 4.40 M/UL (4.70-6.10) L Hemoglobin 13.1 G/DL (14.2-18.0) L Hematocrit 39.7 % (42.0-52.0) L Mean Corpuscular Volume 90 FL (80-99) Mean Corpuscular Hemoglobin 29.8 PG (27.0-31.0) Mean Corpuscular Hemoglobin Concent 33.1 G/DL (32.0-36.0) Red Cell Distribution Width 12.9 % (11.6-14.8) Platelet Count 170 K/UL (150-450) Mean Platelet Volume 8.5 FL (6.5-10.1) Neutrophils (%) (Auto) 62.8 % (45.0-75.0) Lymphocytes (%) (Auto) 21.9 % (20.0-45.0) Monocytes (%) (Auto) 13.4 % (1.0-10.0) H Eosinophils (%) (Auto) 1.1 % (0.0-3.0) Basophils (%) (Auto) 0.8 % (0.0-2.0) Sodium Level 140 MMOL/L (136-145) Potassium Level 3.7 MMOL/L (3.5-5.1) Chloride Level 105 MMOL/L (98-107) Carbon Dioxide Level 26 MMOL/L (21-32) Anion Gap 9 mmol/L (5-15) Blood Urea Nitrogen 17 mg/dL (7-18) Creatinine 1.2 MG/DL (0.55-1.30) Estimat Glomerular Filtration Rate > 60 mL/min (>60) Glucose Level 117 MG/DL (74-106) H Calcium Level 9.1 MG/DL (8.5-10.1) Phosphorus Level 3.4 MG/DL (2.5-4.9) Magnesium Level 2.1 MG/DL (1.8-2.4) Plan Problems: (1) Status post CVA (2) Seizure disorder (3) Elevated troponin (4) Altered mental status (5) Head injury (6) Contusion of left hip (7) Contusion of right knee (8) Lower extremity edema Assessment & Plan: 60-year-old with male multimedical comorbidities presented with seizures identified lower extremity swelling potential cellulitis surgery called to evaluate long history of bilateral noted no erythema no tenderness unlikely DVT cardiac issues identified cardiology but appreciated on Lasix continue Lasix keep legs elevated while in bed okay to ambulate okay for diet remainder of exam fairly benign no acute trauma from seizure or falls. Thank you will follow with recommendations David Temple Oct 29, 2020 12:08
[2020-10-29] MEDS ORDERED: METOPROLOL TART25 MG ORAL (12:31)
[2020-10-29] MEDS ORDERED: ASPIRIN81 MG ORAL (12:31)
[2020-10-29] MEDS ORDERED: LIPITOR20 MG ORAL (12:31)
[2020-10-29] MEDS ORDERED: KEPPRA500 MG ORAL (12:31)
--- NOTE | 2020-10-29 12:42 | Discharge Summary ---
Discharge Summary Hospital Course Date of Admission Oct 24, 2020 at 20:15 Date of Discharge 10/29/20 Admitting Diagnosis Uncontrolled seizure Reason for Hospitalization: #Breakthrough seizure HPI Lv Joy is a 60 year old male who was admitted on Oct 24, 2020 at 20:15 for Uncontrolled Seizure Consultations Neurology,Cardiology Hospital Course 60 year old man with schizophrenia, epilepsy, HTN, history of CVA with left sided residual hemiparesis, who presented with breakthrough seizure. Admitted to telemetry, treated with medical management as per Cardiology recs. Seen by Neurology, Keppra increased to 500 mg bid which he will continue at SNF #Breakthrough seizure #Epilepsy #NSTEMI - likely type 2, demand ischemia in the setting of multiple seizures #history of CVA with left sided residual weakness #Hypertensive urgency #Schizophrenia I spent 38 minutes on this patient's discharge and 20 minutes was dedicated to counseling and/or care coordination with RN, business sales consultant MDs Discharge Medications New Medications: Metoprolol Tartrate* (Metoprolol Tartrate*) 25 Mg Tablet 25 MG ORAL TWICE A DAY for 30 Days, #60 TAB Aspirin* (Aspirin*) 81 Mg Tab.chew 81 MG ORAL DAILY for 30 Days, #30 TAB Atorvastatin Calcium* (Lipitor*) 20 Mg Tablet 40 MG ORAL BEDTIME for 30 Days, #30 TAB Levetiracetam (Keppra) 250 Mg Tablet 500 MG ORAL Q12HR for 30 Days, #60 TAB Continued Medications: Amlodipine Besylate (Norvasc) 10 Mg Tablet 10 MG ORAL DAILY for hypertension, #1 TAB Ascorbic Acid* (Vitamin C*) 500 Mg Tablet 500 MG ORAL DAILY for supplement, TAB 0 Refills Cholecalciferol (Vitamin D3) (Vitamin D3*) 25 Mcg Capsule 5000 UNIT PO DAILY for Supplement, CAP Docusate Sodium (Docusate Sodium) 100 Mg Tablet 100 MG ORAL DAILY for bowel management, #1 TAB 0 Refills Folic Acid* (Folic Acid*) 1 Mg Tablet 1 MG ORAL DAILY for SUPPLEMENT, #1 TAB Gabapentin (Gabapentin) 300 Mg/6 Ml Solution 300 MG ORAL THREE TIMES A DAY for nerve pain, #1 ML Hydralazine HCl (Hydralazine HCl) 100 Mg Tablet 100 MG ORAL BEDTIME for hypertension, TAB Hydrocodone Bit/Acetaminophen 10-325* (Hydrocodon-Acetaminophn 10-325*) 1 Each Tablet 1 TAB ORAL Q4H PRN for PRN, #1 TAB 0 Refills Ibuprofen* (Motrin*) 600 Mg Tablet 600 MG ORAL Q6H PRN for For Pain, #30 TAB 0 Refills Lorazepam* (Ativan*) 1 Mg Tablet 1 MG ORAL Q6HR PRN for For Anxiety, TAB Metoprolol Tartrate* (Metoprolol Tartrate*) 50 Mg Tablet 50 MG ORAL DAILY for hypertension, #1 TAB Multivitamin (Multi-Vitamin Daily) 1 Each Tablet 1 TAB PO for supplement, #1 TAB Ondansetron (Zofran) 4 Mg Tablet 4 MG ORAL Q6H PRN for Nausea & Vomiting, TAB Risperidone* (Risperdal*) 2 Mg Tablet 2 MG ORAL DAILY PRN for bedtime, TAB 0 Refills Sennosides/Docusate Sodium (Senna-S 8.6-50 mg Tablet) 1 Each Tablet 2 TAB PO BEDTIME for bowel management, TAB Thiamine Hcl* (Vitamin B-1*) 100 Mg Tablet 100 MG ORAL DAILY for supplement, #30 TAB 0 Refills Trazodone* (Trazodone*) 150 Mg Tablet 50 MG ORAL BEDTIME for depression/insomnia, TAB Discontinued Medications: Hydrocodone Bit/Acetaminophen (Hydrocodon-Acetaminophen 5-300) 1 Each Tablet 1 EACH PO Q4HR PRN for Mild Pain (Pain Scale 1-3), TAB Levetiracetam (Levetiracetam) 500 Mg/5 Ml Solution 500 MG PO BEDTIME for seizure, #1 Discharge Condition Upon Discharge: improving Discharge Vital Signs Last Vital Signs Date Time Temp Pulse Resp B/P (MAP) Pulse Ox O2 Delivery O2 Flow Rate FiO2 10/29/20 09:47 130/66 10/29/20 09:46 65 10/29/20 08:00 97.7 18 98 10/28/20 21:00 Room Air Discharge Disposition Patient was discharged to SNF Discharge Diagnoses: (1) NSTEMI (non-ST elevated myocardial infarction) (2) Breakthrough seizure Keenan Palacios MD Oct 29, 2020 12:42
[2020-10-29 13:21] VITALS: BP 113/61
--- NOTE | 2020-10-29 13:42 | NUR ---
*-*DISCHARGE PLANNED*-* PATIENT HAS BEEN ACCEPTED AND WILL BE DISCHARGED TO: [facility] P: [phone] FOR NURSE TO NURSE REPORT ROOM# 204.[facility] TRANSPORTATION SET FOR 3PM S/W HARI [id number]. PLACED A CALL TO PATIENTS GRANDMOTHER TRAVEL KEMP, NUMBER IS DISCONNECTED, UNABLE TO LEAVE VOICE MESSAGE.
--- NOTE | 2020-10-29 13:45 | NUR ---
Patient discharged to [facility] [place] [facility]. Belongings inventory completed with patient. CHRIS Correia at [facility] given report. IV removed without any complications. Telemetry removed. Attempted to call next of kin on facesheet phone number disconnected. Awaiting arrival of ambulance.
--- NOTE | 2020-10-29 14:08 | NUR ---
Patient scheduled for discharge. Patient cashed returned per policy. Returned to patient 15 twenty dollar bills equaling $300 3 five dollar bills equaling $15 and ninety five cent in changed returned for a total of $315.95. Loi rosales present for return transaction.
--- NOTE | 2020-10-29 17:21 | NUR ---
Patient transported to [facility] via ambulance.
--- NOTE | 2020-10-30 08:01 | Cardiology Report ---
APPROVED REPORT EXAM: Two-dimensional and M-mode echocardiogram with Doppler and color Doppler. INDICATION Bundle branch block M-Mode DIMENSIONS IVSd1.8 (0.7-1.1cm)Left Atrium (MM)6.1 (1.6-4.0cm) LVDd6.3 (3.5-5.6cm)Aortic Root3.7 (2.0-3.7cm) PWd1.4 (0.7-1.1cm)Aortic Cusp Exc.2.7 (1.5-2.0cm) IVSs2.2 cmEPSS0.5 (>1.0cm) LVDs4.9 (2.5-4.0cm) PWs1.4 cm <Conclusion> Mild left ventricular enlargement. Normal left ventricular systolic function and wall motion. Left ventricular ejection fraction estimated to be 60 %. Mild left ventricular hypertrophy. No evidence of pericardial effusion. Moderate bi-atrial enlargement. Right ventricular chamber sizes is within normal limits. Focal aortic valve sclerosis with adequate cusp excursion. Thickened mitral valve leaflets with normal excursion. Mitral annulus and aortic root calcification. Pulmonic valve not well visualized. Normal tricuspid valve structure. IVC at normal size with physiological collapse. A color flow and spectral Doppler study was performed and revealed: No aortic insufficiency. Mitral diastolic velocities suggest mild left ventricular diastolic dysfunction (Grade I). Trace mitral regurgitation. Trace tricuspid regurgitation. Tricuspid systolic velocities suggests peak right ventricular systolic pressure of 18 mmHg. Trace pulmonic regurgitation present.
== END 2020-10-29 14:20 | DRG 53 ==
LOC: EDBD 18:39 → EDUNIT# 18:39 → EDBEDREQ 18:57 → EMR 19:41 → 2E 20:15 → EDBEDREQ 21:29 → 2E 22:33
DX: G40.909 Epilepsy, unspecified, not intractable, without status epilepticus (principal); I21.A1 Myocardial infarction type 2; F20.9 Schizophrenia, unspecified; I11.9 Hypertensive heart disease without heart failure; I69.354 Hemiplegia and hemiparesis following cerebral infarction affecting left non-dominant side; S09.90XA Unspecified injury of head, initial encounter; X58.XXXA Exposure to other specified factors, initial encounter; S70.02XA Contusion of left hip, initial encounter; S80.01XA Contusion of right knee, initial encounter; I47.2 Ventricular tachycardia; F17.200 Nicotine dependence, unspecified, uncomplicated
CPT/HCPCS: 36415; 70450; 80048; 80053; 80299; 80307; 81003; 82550; 83735; 83880; 84100; 84484; 85025; 87081; 93005; 93306; 93970; 96361; 96374; 96375; 99285; G0480; J7030